=== PATIENT | female | born 1985 | race Caucasian/White ===

== ENCOUNTER 2025-01-24 14:03 | Outpatient (AMB) | payer BC, SELFPAY ==
--- NOTE | 2025-01-24 14:13 | MHC.PC.OV ---
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 Intake Note: new patient to [facility], patient also has a bump on her neck x 5days Sustainability Project Coordinator Required: No Allergies No Known Allergies Allergy (Verified 01/24/25 14:15) Tobacco use date assessed: 01/24/25 Dental Screening Dental Screen Date: 01/24/25 Did you have a dental visit in the last 12 months?: Yes Did you have a dental problem in the last 6 months where you did not have access to dental care?: No Was dental information given to patient?: Patient has dentist HPI HPI Comments History of Present Illness Details This is a 39-year-old female with a past medical history of lymphadenopathy, a thyroid nodule and depression with anxiety presenting to [facility]. She transferred from [place]. She scheduled the appointment because she is concerned about the nodule on her thyroid. She tells me that she was seeing General surgery, Dr. Navarro, due to prominent lymph nodes in her neck. She had ultrasounds and CT scan which were reassuring, and biopsy was not indicated. She had an ultrasound on 11/12/2024 which redemonstrated prominent level 2 nodes that appeared morphologically normal. She does not have pain associated with them. This ultrasound in October of 2024 also demonstrated a 1.7 x 1.4 x 1.3 cm mid gland left thyroid nodule, predominantly cystic, anechoic with layering isoechoic material, not tell her than wide, smooth margin, and possible peripheral rim calcifications, TI-RADS 3. Follow up ultrasound in 1, 3 in 5 years was recommended. She is concerned because she feels that it has enlarged during the past week, and sometimes when she swallows it feels uncomfortable on the left thyroid area or feels like something is stuck there. She is not having any difficulty actually swallowing or having to regurgitate food. No recent illness. Denies sore throat, fevers, chills. She is not having acid reflux. Patient says depression screening is positive because she has been so anxious about the thyroid nodule. She has a history of anxiety with depression, but she says this has not been problematic for her in recent times, and she is not under the care of a therapist or taking medication for it. She is prescribed Suboxone. Mammogram is up-to-date. She has bilateral breast implants. The mammogram did show on 10/17/2024 that she has heterogeneously dense breast tissue. Her mother had breast cancer. She has a gynecology visit scheduled 01/31/2024. Her last physical was in September of 2024. ROS: Constitutional: No unexplained weight loss, fever, chills, fatigue or night sweats. ENT: No hearing loss, sneezing, congestion, runny nose or sore throat. Respiratory: No shortness of breath, cough or sputum production. Cardiovascular: No chest pain Gastrointestinal: No anorexia, nausea, vomiting or diarrhea. No abdominal pain Neurologic: No headache, dizziness, syncope Skin: No rash Endocrine: No cold or heat intolerance. No polyuria or polydipsia. Physical exam: Constitutional: Alert, in no distress. Head: Normocephalic. Eyes: Pupils are equal, round and reactive to light. Extraocular muscles intact. Ear, Nose and Throat: Canals clear. TMs normal. Normal nasal mucosa. No nasal discharge. No oral lesions. Neck: Supple, Full range of motion. Bilateral prominent submandibular lymph nodes that are nontender to palpation.. The left thyroid lobe feels a little bigger than the right lobe, but I could not palpate a discrete mass. Respiratory: Clear to auscultation. Cardiovascular: S1 S2 regular. No murmurs. [facility] Medical History (Updated 01/24/25 @ 17:12 by MIKAEL Bills) Dense breast tissue Depression with anxiety Encounter for monitoring Suboxone maintenance therapy Dysphagia Thyroid nodule Surgical History (Updated 01/24/25 @ 17:09 by MIKAEL Bills) Hx of cosmetic surgery Family History (Updated 01/24/25 @ 14:23 by Edwina Peter) Father Substance abuse Mother Cancer Maternal Grandfather HTN (hypertension) Paternal Grandfather HTN (hypertension) Maternal Grandmother HTN (hypertension) Diabetes Paternal Grandmother Cardiovascular disease Social History (Updated 01/24/25 @ 14:20 by Edwina Peter) Household Members: Significant Other and Children Housing: House Are you a primary manager critical care to a significant other at home: Yes Do you presently have visiting nurse or other home services: No Alcohol intake: current Alcohol intake frequency: a few times a month Patient Tobacco Use Status: Never used Tobacco e-Cigarette/Vaping Use: Currently Using Second Hand Smoke Exposure: No service: No Current occupational status: employed 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 1. Little interest or pleasure in doing things: several days 2. Feeling down, depressed, or hopeless: several days 3. Trouble falling or staying asleep, or sleeping too much: not at all 4. Feeling tired or having little energy: more than half the days 5. Poor appetite or overeating: several days 6. Feeling bad about yourself - or that you are a failure or have let yourself or your family down: not at all 7. Trouble concentrating on things, such as reading the newspaper or watching television: not at all 8. Moving or speaking so slowly that other people could have noticed. Or the opposite - being so fidgety or restless that you have been moving around a lot more than usual: not at all 9. Thoughts that you would be better off or of hurting yourself in some way: not at all Total score: 5 [id number] - PHQ-9 Billing: Yes Source: Developed by Drs. Gigi Tompkins, Chinyere Fam, Rob Watson and colleagues, with an educational leanne from [employer]. Thrive Questionnaire Date Thrive assessed: 01/24/25 I am a: Patient What is your living situation today?: I have a steady place to live Within the past 12 months, did the food you bought not last and you didn't have the money to get more?: Never true Within the past 12 months, did you worry whether your food would run out before you got money to buy more?: Never true Do you have trouble paying for medicines?: No Do you have trouble getting transportation to medical appointments?: No Do you have trouble paying your heating and electricity bill?: No Do you have trouble taking care of your child, family member or friend?: No Do you have trouble with day-to-day activities such as bathing, preparing meals, shopping, managing finances, etc.?: No Are you currently unemployed and looking for a job?: No Are you interested in more education?: No Please select the resources that you would like help with: None Currently or been in a relationship where the following occur: No concerns reported THRIVE Score: 0 AUDIT C Alcohol Use Questionnaire (AUDIT-C) 1. How often do you have a drink containing alcohol?: Monthly or less 2. How many drinks containing alcohol do you have on a typical day when you are drinking?: 1 or 2 3. How often do you have six or more drinks on one occasion?: Never Total Score: 1 MARCUS-7 AMB Questionnaire MARCUS-7 Date MARCUS - 7 assessed: 01/24/25 Feeling nervous, anxious, or on edge: 1 = Several days Not being able to stop or control worryin = Several days Worrying too much about different things: 1 = Several days Trouble relaxin = Not at all Being so restless that it is hard to sit still: 0 = Not at all Becoming easily annoyed or irritable: 1 = Several days Feeling afraid as if something awful might happen: 0 = Not at all Total MARCUS-7 score (0-4 normal; 5-9 mild; 10-14 moderate; 15-21 severe): 4 Source: Developed by Drs. Gigi Tompknis, Chinyere Fam, Rob Watson and colleagues, with an educational leanne from [employer]. MARCUS-7 Assessment Billing MARCUS-7 Assessment Tool: MARCUS-7 Assessment 63883 Physical exam (Primary Care) Vital Signs: Last Vital Signs Temp 97.1 F 01/24/25 14:25 Pulse 68 01/24/25 14:25 Resp 12 01/24/25 14:25 BP 114/68 01/24/25 14:25 Pulse Ox 98 01/24/25 14:25 Oxygen Delivery Method Room Air 01/24/25 14:25 BMI result Body Mass Index 26.5 Tobacco/Smoking Status: Tobacco use Status Tobacco use date assessed 01/24/25 01/24/25 14:27 Patient Tobacco Use Status Never used Tobacco 01/24/25 14:27 e-Cigarette/Vaping Use Currently Using 01/24/25 14:27 PHQ-9: PHQ-9 Score PHQ-9: Total score 5 01/24/25 14:38 Thrive Assessment: Date of Thrive Assessment Date Thrive assessed 01/24/25 01/24/25 14:17 Currently or been in a relationship where the following occur: No concerns reported Coding Level of Care Code New Pt Level 4 (01376) Complex EM visit Add On G2211 Diagnoses Thyroid nodule E04.1 Dysphagia R13.10 Additional Codes MARCUS-7 Assessment Billing - MARCUS-7 Assessment Tool: MARCUS-7 Assessment 96458 ([id number]) PHQ-9 - 80930 - PHQ-9 Billing: Yes ([id number]) Assessment & Plan Assessment & Plan (1) Thyroid nodule: Code(s): E04.1 - Nontoxic single thyroid nodule Category: Medical (2) Dysphagia: Code(s): R13.10 - Dysphagia, unspecified Category: Medical (3) Thyroid nodule: Code(s): E04.1 - Nontoxic single thyroid nodule Category: Medical Plan Orders for thyroid ultrasound and x-ray of the soft tissue of the neck sent to [facility] per patient request. She is going to call them tomorrow to schedule them and message me the appointment date. Warning signs warranting ER evaluation reviewed. Check TSH, BNP and CBC. Reviewed with patient that 95% of thyroid nodules are benign. Referred to breast specialist for evaluation of dense breast tissue given family history. She will schedule her physical exam for 10/17/2025 in a follow up in a few weeks with me to discuss test results. Orders: Orders US thyroid Today E04.1 - Nontoxic single thyroid nodule, R13.10 - Dysphagia, unspecified XR soft tissue neck Today E04.1 - Nontoxic single thyroid nodule, R13.10 - Dysphagia, unspecified Complete Blood Count Auto Diff Today E04.1 - Nontoxic single thyroid nodule, R13.10 - Dysphagia, unspecified TSH reflex Free T4 Today E04.1 - Nontoxic single thyroid nodule, R13.10 - Dysphagia, unspecified Basic Metabolic Panel Today E04.1 - Nontoxic single thyroid nodule, R13.10 - Dysphagia, unspecified
[2025-01-24 14:25] VITALS: BP 114/68; PULSE 68; RESP 12; TEMP 36.2; O2SAT 98; BMI 26.5
--- OUTSIDE RECORDS SUMMARY | 2025-01-24 16:59 | XMS_ITS | Clinical Summary ---
Author Organization [facility] [address] [facility] lding Address [address] [place] [address] Phone Care Team Providers Care Plate Embosser Name Role Phone Kell Moulton MD Primary Care Provider [phone] Allergies No known active allergies Medications buprenorphine (SUBUTEX) [address] 12 mg under the tongue daily. 01/16/2021 Active polyethylene glycol (MIRALAX) 17 gram packet Take 17 g by mouth daily. Active 123/iron/folic/ omeg3s (ONE-A-DAY WOMEN'S 1 ORAL) Take by mouth. Active Lactobac no.41/Bifidobac t no.7 (PROBIOTIC-10 ORAL) Take by mouth. Active valACYclovir (VALTREX) 1 gram tablet 1 g. 10/15/2021 Active multivitamin (MULTI-DAY ORAL) Take 1 capsule by mouth. 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 (HSV) ant ibody 02/16/2022 Overview (08/24/2024): Both type 1 and 2, denies ever having a genital outbreak On valtrex at 36 wks Suboxone maintenance treatme nt complicating , antepartum 12/24/2021 Overview (08/24/2024): Currently on 12 mg [place]: Pediatrics consult 05/17 10am GET RID OF ANESTHESIA CONSULT Growth US Q 4 weeks Weekly testing at 32 weeks- getting BPPs Plan by pain management clinic in chart for pain at 36 weeks --Should be listed under the problem list where the patient goes and someone should contact at IP and on admission to [facility] for confirmation of dosing Q trimester urine drug screen Declined mantra services COVID-19 05/19/2020 Overview (08/24/2024): In 2019 Morphea 04/11/2019 Overview (08/24/2024): Back CTS (carpal tunnel syndrome) 05/27/2015 Left hand paresthesia 06/27/2014 Heavy menses 06/27/2014 Fatigue 06/27/2014 Depression 07/06/2012 Overview (08/24/2024): Hx of depression/anxiety as teenager. Anxiety 07/06/2012 Overview (08/24/2024): Hx of depression/anxiety as teenager. Immunizations Name Administration Dates Next Due DTaP (Infanrix) 6wks to less than 7yo ,12/27/1985,1984,1983,1984 Hep B, Unspecified 02/05/2000,07/31/1997 Hepatitis B (Sybldba-T-Trnog , Recombivax HB-Adult) 19yo and older 05/05/2016 Hepatitis B Pediatric (Enger ix B; Recombivax HB) to less than 20 yo 02/05/2000,07/31/1997 IPV Inactivated polio (Ipol) 6wks and older 08/27/1989,12/27/1985,1984,1983,1984 Influenza Quadravalent, MDCK , 0.5ml, with preservative (Flucelvax) 6mo and older 10/14/2017 Influenza Quadrivalent, 0.5m l, preservative free (Fluarix; FluLaval; Fluzone) ages 6mo and older (Afluria) 3yo and older 09/17/2022,08/13/2020 Influenza trivalent, 0.5mL, preservative free (Fluarix; FluLaval; Fluzone) ages 6mo and older (Afluria) 3 years and older 09/12/2015 Influenza trivalent, MDCK, 0 .5mL, preservative free (Flucelvax) 6mo and older 10/02/2024 Influenza trivalent, with preservative (Fluzone; Afluria) 6mo and older 09/18/2015,09/12/2015,09/11/2014,2012 MMR, measles mumps and rubel la Live (Priorix; M-M-R II) 12mo and older 07/31/1997,08/20/1985 MMRV, measles mumps rubella and varicella live (Proquad) 4yo to less than 7yo 07/31/1997,08/20/1985 Td Tetanus diptheria (Tdvax) 7yo and older 02/05/2000 Td, Unspecified 02/05/2000 Tdap Tetanus diptheria acell ular pertussis (Boostrix; Adacel) 7yo and older 05/11/2022,10/31/2012 Surgical History Surgery Date Site/Laterality Comments OTHER SURGICAL HISTORY 2002 PROCEDURE: IMPLANT BREAST SILICONE/EQ OTHER SURGICAL HISTORY 2003 PROCEDURE: MD NASAL/SINUS NDSC SURG W/BX POLYPC/DBRDMT SPX; COMMENT: rhinoplasty Medical History Medical History Date Comments History of opioid abuse ([facility]) 07/06/2012 DX:History of opioid abuse ([facility]); COMMENT: Currently in program; on Suboxone 16 daily Depression 07/06/2012 DX:Depression; C OMMENT: Hx of depression/anxiety as teenager. Anxiety 07/06/2012 DX:Anxiety; COMM ENT: Hx of depression/anxiety as teenager. Tobacco use 05/27/2015 DX:Tobacco use CTS (carpal tunnel syndrome) 05/27/2015 DX: CTS (carpal tunnel syndrome) HSV infection DX:HSV infection Morphea 04/11/2019 DX:Morphea; COMM ENT: Back Epigastric pain DX:Epigastric pa in Irritable bowel syndrome DX:Irri table bowel syndrome Family History Medical History Relation Name Comments Heart failure Father Hypertension Father Other cancer Maternal Grandfather liver Diabetes Maternal Grandmother Hypertension Maternal Grandmother Pancreatitis Maternal Grandmother Thyroid disease Maternal Grandmother Breast cancer Mother Adenoid cystic carcinoma BRCA negative, HTN Hypertension Mother Pancreatitis Mother Alzheimer's disease Paternal Grandfather CABG Paternal Grandmother Coronary artery disease Paternal Grandmother No Known Problems Sister No Known Problems Son 1 Peña No Known Problems Son 2 Joe No Known Problems Son 3 Javier Colon cancer Neg Hx Ovarian cancer Neg Hx Prostate cancer Neg Hx Uterine cancer Neg Hx Relation Name Status Comments Father Alive Maternal Grandfather lung ca ncer Maternal Grandmother Alive Mother Alive Paternal Grandfather Paternal Grandmother Alive Sister Alive Son 1 Peña Alive 2000 Son 2 Joe Alive 2012 Son 3 Javier Alive Social History Tobacco Use Types Packs/Day Years Used Date Smoking Tobacco: Former Cigarettes Smokeless Tobacco: Never Tobacco Cessation:Counseling Given: Not Answered Alcohol Use Standard Drinks/Week Comments No 0 (1 standard drink = 0.6 oz pur e alcohol) Housing Instability Answer Date Recorde d Are you worried that in the next 2 months you may not have stable housing? No 10/02/2024 Food Access & Nutrition Answer Date Rec orded Do you have access to a vari ety of food including fruits and vegetables? Yes 10/02/2024 Access to Healthcare Answer Date Record ed Within the last 3 months, ho w many times did you visit the emergency department for your medical care? 0 10/02/2024 Health Literacy Answer Date Recorded How often do you need to hav e someone help you when you read instructions, pamphlets, or other written material from your doctor or pharmacy? Never 10/02/2024 Caregiver: How often do you need to have someone help you when you read instructions, pamphlets, or other written material from your doctor or pharmacy? Not on file 10/02/2024 Financial Risk Answer Date Recorded How hard is it for you to pa y for the very basics like food, housing, medical care, and air conditioning / heating? Not very hard 10/02/2024 Transportation Answer Date Recorded Has the lack of transportati on kept you from meetings, work, or from getting things needed for daily living? No Has the lack of transportati on kept you from medical appointments or from getting medications? No 10/02/2024 Social Isolation Answer Date Recorded How often do you feel lonely or isolated from th ose around you? Never 10/02/2024 Food Risk Answer Date Recorded Within the past 12 months we worried whether our food would run out before we got money to buy more. Never true 10/02/2024 Within the past 12 months th e food we bought just didn't last and we didn't have money to get more. Never true 10/02/2024 Dependent Care Answer Date Recorded Do you need help finding or paying for care for your loved ones. For example, childcare teacher or elderly care for an older adult? No 10/02/2024 Education Answer Date Recorded Do you think completing more education or training, like finishing a GED, going to college, or learning a trade, would be helpful for you? No 10/02/2024 Employment and Income Answer Date Recor ded During the last four weeks, have you been actively looking for work? No 10/02/2024 Living Situation Answer Date Recorded What is your living situation? 1 12/02/2023 Comments No Sex and Gender Information Value Date Recorded Sex Assigned at Not on file Legal Sex Female 10:21 PM EST Gender Identity Not on file Sexual Orientation Not on file Obstetrics History Para Term AB IAB SAB Ectopic Multiple Livin g Live Births 3 3 3 3 Date Outcome GA Total Labor Labor/2nd/3rd Weight Sex Type Anes PTL Luz A1 A5 Name Clin Term Term Term Last Filed Vital Signs Vital Sign Reading Time Taken Comments Blood Pressure 108/62 10/02/2024 8:59 AM EST Pulse 62 10/02/2024 8:59 AM EST Temperature 35.8 ??C (96.4 ??F) 10/02/2024 8:59 AM ES T Respiratory Rate - - Oxygen Saturation - - Inhaled Oxygen Concentration - - Weight 76.7 kg (169 lb) 10/02/2024 8:59 AM EST Height 170.2 cm (5' 7 ) 10/02/2024 8:59 AM EST Body Mass Index 26.47 10/02/2024 8:59 AM EST Plan of Treatment Upcoming Encounters Date Type Department Care Team (Late st Contact Info) Description 01/30/2025 11:15 AM EST Office Visit Obstetrics and Gynecology [address] [phone] Katy Willis, [facility] [address] [facility] [place] [address] Health Maintenance Due Date Last Done Comments COVID-19 Vaccine ( season) 2024 09/17/2022, 08/03/2021, 07/06/2021 Cervical Cancer Screening: HPV 01/01/2025 01/01/2020 Depression Screening 10/02/2025 10/02/2024 Social Influencers of Health Screening 10/02/2025 10/02/2024 Breast Cancer Screening 10/16/2026 10/16/2024 Cholesterol Screening (Lipid Panel) 10/05/2029 10/05/2024, 05/03/2023 DTaP,Tdap,and Td Vaccines (10 - Td or Tdap) 05/11/2032 05/11/2022, 10/31/2012, 02/05/2000, Additional history exists IPV Vaccines Completed 08/27/1989, 11/30, 1984, Additional history exists MMR Vaccines Completed 07/31/1997, 01/1997, 08/20/1985, Additional history exists Varicella Vaccines Completed 07/31/1997, 08/20/1985 Hepatitis B Vaccines Completed 05/05/2016, 02/05/2000, 02/05/2000, Additional history exists HIV Screening Completed 12/24/2021 Hepatitis C Screening Completed 12/24/2021 Influenza Vaccine Completed 10/02/2024, , 08/13/2020, Additional history exists HIB Vaccines Aged Out No longer eligi ble based on patient's age to complete this topic HPV Vaccines Aged Out No longer eligi ble based on patient's age to complete this topic Hepatitis A Vaccines Aged Out No long er eligible based on patient's age to complete this topic Meningococcal ACWY Vaccine Aged Out N o longer eligible based on patient's age to complete this topic Meningococcal B Vacine Aged Out No lo nger eligible based on patient's age to complete this topic Pneumococcal Vaccine: Pediatrics (0 to 5 Years) and At-Risk Patients (6 to 64 Years) Aged Out No longer eligible based on patient's age to complete this topic RSV Immunization Patients Under 20 months Aged Out No longer eligible based on patient's age to complete this topic Procedures Procedure Name Priority Date/Time Associated Diagnosis Comments MG MAMMO DIGITAL SCREENING W GUNNAR BILAT Routine 10/16/2024 3:15 PM EST Screening mammogram for breast cancer LIPID PANEL WITH REFLEX TO DIRECT LDL Routine 10/05/2024 11:55 AM EST Screening, lipid HM HEPATITIS C SCREENING Routine 12/24/2021 HM HIV SCREENING Routine 12/24/2021 HM HPV Routine 01/01/2020 from Last 3 Months or Most Recently Relevant to Health Maintenance Results * MG Mammo Digital Screening w Gunnar bilat (10/16/2024 3:15 PM EST) Anatomical Region Laterality Modality Breast Bilateral Mammography 10/17/2024 11:4 2 AM EST Impressions 10/17/2024 11:47 AM EST No mammographic evidence of malignancy. BREAST DENSITY: C - The breasts are heterogeneously dense which may obscure small masses. BI-RADS CATEGORY: 1 - NEGATIVE RECOMMENDATION: Screening bilateral mammogram is recommended in 1 year. MAMMO LOCATION: [facility], [address] [place] [address], [phone], . -------- FINAL REPORT -------- Dictated By: Reina San Dictated Date: 10/17/2024 11:42 ET Assigned Physician: Reina San Reviewed and Electronically Signed By: Reina San Signed Date: 10/17/2024 11:47 ET Workstation ID: [id number] Transcribed By: Self Edit Transcribed Date: 10/17/2024 11:42 ET Narrative 10/17/2024 11:47 AM EST EXAM: Screening Mammogram CLINICAL: 39 years old, Female, routine annual exam. COMPARISON: This is a baseline exam. TECHNIQUE: Bilateral MLO and CC views were obtained digitally with 3-D mammogram (digital breast tomosynthesis). Computer-aided detection was utilized in evaluation of this exam (CAD). ??Implant and implant displaced views performed. FINDINGS: No suspicious mass, architectural distortion, or suspicious calcifications. Visualized implants appear intact. Procedure Note Reina San MD - 10/17/2024 EXAM: Screening Mammogram CLINICAL: 39 years old, Female, routine annual exam. COMPARISON: This is a baseline exam. TECHNIQUE: Bilateral MLO and CC views were obtained digitally with 3-Dmammogram (digital breast tomosynthesis). Computer-aided detection wasutilized in evaluation of this exam (CAD). Implant and implant displacedviews performed. FINDINGS: No suspicious mass, architectural distortion, or suspiciouscalcifications. Visualized implants appear intact. IMPRESSION: No mammographic evidence of malignancy. BREAST DENSITY: C - The breasts are heterogeneously dense which mayobscure small masses. BI-RADS CATEGORY: 1 - NEGATIVE RECOMMENDATION: Screening bilateral mammogram is recommended in 1 year. MAMMO LOCATION: [facility], [address] [place] [address], [phone], . -------- FINAL REPORT -------- Dictated By: Reina San Dictated Date: 10/17/2024 11:42 ET Assigned Physician: Reina San Reviewed and Electronically Signed By: Reina San Signed Date: 10/17/2024 11:47 ET Workstation ID: [id number] Transcribed By: Self Edit Transcribed Date: 10/17/2024 11:42 ET Ab [facility] BI PROCEDURES Final Result * Lipid panel with reflex to direct LDL (10/05/2024 11:55 AM EST) Cholesterol 131 0 - 200 mg/dL LAB CHEMISTRY METHOD 10/05/2024 3:26 PM EST [facility] Triglycerides 115 0 - 150 mg/dL LAB CHEMISTRY METHOD 10/05/2024 3:26 PM EST [facility] HDL 51 >=40 mg/dL LAB CHEMISTRY METHOD 10/05/2024 3:26 PM EST [facility] LDL Calculated 57 0 - 100 mg/dL LAB CHEMISTRY METHOD 10/05/2024 3:26 PM EST [facility] VLDL Cholesterol John 23 mg/dL LAB CHEMISTRY METHOD 10/05/2024 3:26 PM EST [facility] Non HDL Chol. (LDL+VLDL) 80 <145 mg/dL LAB CHEMISTRY METHOD 10/05/2024 3:26 PM EST [facility] Chol/HDL Ratio 2.6 0.0 - 4.4 LAB CHEMISTRY METHOD 10/05/2024 3:26 PM EST [facility] Blood Venous blood specimen / Unknown Venipuncture / Unknown 10/05/2024 11:55 AM EST 10/05/2024 11:55 AM EST Ab [facility] LAB BLOOD ORDERABLES Final Res ult [facility] [address] [place] [address], * HIV Screening (12/24/2021) Pathologist [facility] HIV Screening Abstracted [facility] Provider HEALTH MAINTENANCE Final Result * Hepatitis C Screening (12/24/2021) Pathologist [facility] Hepatitis C Screening Abstracted Historical Provider HEALTH MAINTENANCE Final Result * Cervical Cancer Screening: HPV (01/01/2020) Pathologist [facility] Cervical Cancer Screening: HPV Abstracted Historical Provider HEALTH MAINTENANCE Final Result from Last 3 Months or Most Recently Relevant to Health [place] [id number] [facility] Care Teams Plate Embosser Relationship Specialty Start Date End Date Kell Moulton MD [address] [place] [address] PCP - General 01/18/23
== END 2025-01-24 14:57 | disposition home or self-care (01) ==
PROVIDERS: PCP Physician Assistant Medical; Visit Provider Physician Assistant Medical
DX: E04.1 Nontoxic single thyroid nodule (principal); R13.10 Dysphagia, unspecified

== ENCOUNTER → 2025-01-24 14:03 | Outpatient (BNVA) | payer BC, SELFPAY | PROVIDERS: PCP Physician Assistant Medical; Visit Provider Physician Assistant Medical | DX: E04.1 Nontoxic single thyroid nodule (principal); R13.10 Dysphagia, unspecified | CPT/HCPCS: 96127 ==

== ENCOUNTER 2025-01-24 15:06 | Outpatient (REF) | payer BC, SELFPAY ==
[2025-01-24 18:08] LABS: MANUAL DIFF FLAG NO
--- OUTSIDE RECORDS SUMMARY | 2025-01-24 18:25 | XMS_ITS | Clinical Summary ---
Author Organization [facility] [address] [facility] lding Address [address] [place] [address] Phone Care Team Providers Care Light Fixture Servicer Name Role Phone Kell Moulton MD Primary Care Provider [phone] Allergies No known active allergies Medications buprenorphine [...] contact at IP and on admission to [facility] for confirmation of dosing Q trimester urine [...] ,12/27/1985,1984,1983,1984 Hep B, Unspecified 02/05/2000,07/31/1997 Hepatitis B (Sarlhho-R-Kbfob , Recombivax HB-Adult) 19yo and older 05/05/2016 [...] BREAST SILICONE/EQ OTHER SURGICAL HISTORY 2003 PROCEDURE: [place] NASAL/SINUS NDSC SURG W/BX POLYPC/DBRDMT SPX; COMMENT: rhinoplasty Medical History Medical History Date Comments History of opioid abuse ([facility]) 07/06/2012 DX:History of opioid abuse ([facility]); COMMENT: Currently in program; on Suboxone 16 [...] care for your loved ones. For example, child and family services worker or elderly care for an older adult? [...] AM EST Office Visit Obstetrics and Gynecology [address] [phone] Katy Willis, [facility] [address] [facility] [place] [address] Health Maintenance Due Date Last Done Comments [...] is recommended in 1 year. MAMMO LOCATION: [facility], [address] [place] [address], [phone], . -------- FINAL REPORT -------- Dictated By: Reina San Dictated Date: 10/17/2024 11:42 ET Assigned Physician: Reina San Reviewed and Electronically Signed By: Reina San Signed Date: 10/17/2024 11:47 ET Workstation ID: [id number] Transcribed By: Self Edit Transcribed Date: 10/17/2024 [...] is recommended in 1 year. MAMMO LOCATION: [facility], [address] [place] [address], [phone], . -------- FINAL REPORT -------- Dictated By: Reina San Dictated Date: 10/17/2024 11:42 ET Assigned Physician: Reina San Reviewed and Electronically Signed By: Reina San Signed Date: 10/17/2024 11:47 ET Workstation ID: [id number] Transcribed By: Self Edit Transcribed Date: 10/17/2024 11:42 ET Ab [facility] BI PROCEDURES Final Result * Lipid panel with reflex to direct LDL (10/05/2024 11:55 AM EST) Cholesterol 131 0 - 200 mg/dL LAB CHEMISTRY METHOD 10/05/2024 3:26 PM EST [facility] Triglycerides 115 0 - 150 mg/dL LAB CHEMISTRY METHOD 10/05/2024 3:26 PM EST [facility] HDL 51 >=40 mg/dL LAB CHEMISTRY METHOD 10/05/2024 3:26 PM EST [facility] LDL Calculated 57 0 - 100 mg/dL LAB CHEMISTRY METHOD 10/05/2024 3:26 PM EST [facility] VLDL Cholesterol John 23 mg/dL LAB CHEMISTRY METHOD 10/05/2024 3:26 PM EST [facility] Non HDL Chol. (LDL+VLDL) 80 <145 mg/dL LAB CHEMISTRY METHOD 10/05/2024 3:26 PM EST [facility] Chol/HDL Ratio 2.6 0.0 - 4.4 LAB CHEMISTRY METHOD 10/05/2024 3:26 PM EST [facility] Blood Venous blood specimen / Unknown Venipuncture / Unknown 10/05/2024 11:55 AM EST 10/05/2024 11:55 AM EST Ab [facility] LAB BLOOD ORDERABLES Final Res ult [facility] [address] [place] [address], * HIV Screening (12/24/2021) Pathologist [facility] HIV Screening Abstracted [facility] Provider HEALTH MAINTENANCE Final Result * Hepatitis C Screening (12/24/2021) Pathologist [facility] Hepatitis C Screening Abstracted Historical Provider HEALTH MAINTENANCE Final Result * Cervical Cancer Screening: HPV (01/01/2020) Pathologist [facility] Cervical Cancer Screening: HPV Abstracted Historical Provider HEALTH MAINTENANCE Final Result from Last 3 Months or Most Recently Relevant to Health [place] [phone] [facility] Care Teams Light Fixture Servicer Relationship Specialty Start Date End Date Kell Moulton MD [address] [place] [address] PCP - General 01/18/23
[2025-01-24 18:32] LABS: Basophils Percent Auto 0.6 % (0-2); Eosinophils Absolute Auto 0.1 X10*3/uL (0.0-0.4); Eosinophils Percent Auto 2.1 % (0-4); Hematocrit 35.1 % (37.0-47.0); Hemoglobin 11.9 g/dl (12.0-16.0); Imm Gran Abs Auto 0.02 X10*3/uL (0.00-0.03); Imm Gran Pct Auto 0.3 % (0.0-0.4); Lymphocytes Absolute Auto 1.7 X10*3/uL (1.2-4.9); Lymphocytes Percent Auto 27.2 % (20-40); Mean Corpuscular HGB Conc 33.9 g/dl (31.0-35.0); Mean Corpuscular Volume 88.4 fL (80.0-98.0); Monocytes Absolute Auto 0.7 X10*3/uL (0.1-1.2); Monocytes Percent Auto 10.6 % (2-11); Neutrophils Absolute Auto 3.7 x10*3/uL (2.0-8.3); Neutrophils Percent Auto 59.2 % (45-73); Platelet Count 190 X10*3/uL (160-400); Red Blood Count 3.97 X10*6/uL (4.20-5.50); White Blood Count 6.3 X10*3/uL (4.8-10.8)
[2025-01-24 18:53] LABS: Anion Gap 10 (12-20); Blood Urea Nitrogen 12 mg/dL (9-16); Calcium 9.2 mg/dL (8.4-10.2); Carbon Dioxide 26 mmol/L (22-29); Chloride 110 mmol/L (96-108); Estimated Glomerular Filt Rate > 60; Glucose Random 118 mg/dL (60-115); Potassium 4.2 mmol/L (3.3-5.1); Sodium 142 mmol/L (135-145)
[2025-01-24 19:00] LABS: TSH reflex Free T4 0.46 uIU/mL (0.32-4.0)
== END 2025-01-24 15:07 | disposition home or self-care (01) ==
LOC: HO.WFDLDS 15:06
PROVIDERS: Visit Provider Physician Assistant Medical
DX: R13.10 Dysphagia, unspecified (principal); E04.1 Nontoxic single thyroid nodule
CPT/HCPCS: 36415; 80048; 84443; 85025

== ENCOUNTER 2025-02-14 13:39 | Outpatient (AMB) | payer BC, SELFPAY ==
--- NOTE | 2025-02-14 13:37 | MHC.PC.OV ---
Intake Visit Reasons: telehealth review results Intake Note: patient here for telehealth follow up for med review Doll Repairer Required: No Is last menstrual period known: Yes Last menstrual period: 12/25/24 Post menopausal: No Patient : No Allergies No Known Allergies Allergy (Verified 02/14/25 13:37) Tobacco use date assessed: 02/14/25 Dental Screening Dental Screen Date: 01/24/25 Did you have a dental visit in the last 12 months?: Yes Did you have a dental problem in the last 6 months where you did not have access to dental care?: No Was dental information given to patient?: Patient has dentist HPI HPI Comments History of Present Illness Details This is a 39-year-old female with a past medical history of lymphadenopathy, a thyroid nodule and depression with anxiety presenting for follow up. When she saw me for an initial visit she was concerned about her thyroid nodule. She reported seeing General surgery, Dr. Navarro, due to prominent lymph nodes in her neck. She had ultrasounds and CT scan which were reassuring, and biopsy was not indicated. She had an ultrasound on 11/12/2024 which redemonstrated prominent level 2 nodes that appeared morphologically normal. She does not have pain associated with them. This ultrasound in October of 2024 also demonstrated a 1.7 x 1.4 x 1.3 cm mid gland left thyroid nodule, predominantly cystic, anechoic with layering isoechoic material, not tell her than wide, smooth margin, and possible peripheral rim calcifications, TI-RADS 3. Follow up ultrasound in 1, 3 in 5 years was recommended. When she saw me she reported a week of discomfort and feeling like the thyroid nodule was larger. She said it felt uncomfortable to swallow. This has since resolved, and she feels like the size of the nodule reduced. Patient says she has been very anxious about it. She had the thyroid ultrasound repeated on 01/31/25 which showed the thyroid nodule measured 1.8 x 1.3 x 1.3 cm, TI-RADS 3. They described it as stable appearing. I had also ordered a soft tissue x-ray of the neck, but when she went to have it done they said they did not have the order. I faxed this again today to [facility], and she will return there to have it done. Her TSH is normal. She has a history of anxiety with depression. She is prescribed Suboxone. She previously reported anxiety and depression were not bothering her, and she does not feel depressed, but she has been a lot more anxious lately. Patient reports she saw her production technician for her annual visit on 01/31/2024. She says her Pap was normal. She reports that she did have an HSV outbreak, and it was treated with valacyclovir. It resolved. She is going to return for blood work to recheck her CBC and check iron and B12 because she was mildly anemic. Her last physical was in September of 2024. ROS: Constitutional: No unexplained weight loss, fever, chills, fatigue or night sweats. Hematologic/Lymphatics: No bleeding or bruising. Endocrine: No cold or heat intolerance. No polyuria or polydipsia. Psychiatric: see HPI. No SI/HI. PFSH Medical History (Updated 02/14/25 @ 14:12 by MIKAEL Bills) Anxiety HSV infection Screening for cardiovascular condition Mild anemia Dense breast tissue Depression with anxiety Encounter for monitoring Suboxone maintenance therapy Dysphagia Thyroid nodule Surgical History (Updated 01/24/25 @ 17:09 by MIKAEL Bills) Hx of cosmetic surgery Family History (Updated 01/24/25 @ 14:23 by Edwina Peter MA) Father Substance abuse Mother Cancer Maternal Grandfather HTN (hypertension) Paternal Grandfather HTN (hypertension) Maternal Grandmother HTN (hypertension) Diabetes Paternal Grandmother Cardiovascular disease Social History (Updated 01/24/25 @ 14:20 by Edwina Peter MA) Household Members: Significant Other and Children Both parents involved: No Caregiver staying overnight: No Housing: House Are you a primary resident care coordinator to a significant other at home: Yes Do you presently have visiting nurse or other home services: No 75 years or older and lives alone: No Alcohol intake: current Alcohol intake frequency: a few times a month Patient Tobacco Use Status: Never used Tobacco e-Cigarette/Vaping Use: Currently Using Second Hand Smoke Exposure: No Patient : No service: No Current occupational status: employed 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 Gigi Tompkins, Chinyere Fam, Rob Watson and colleagues, with an educational leanne from [employer]. Physical exam (Primary Care) Tobacco/Smoking Status: Tobacco use Status Tobacco use date assessed 02/14/25 02/14/25 13:39 Patient Tobacco Use Status Never used Tobacco 02/14/25 13:39 e-Cigarette/Vaping Use Currently Using 02/14/25 13:39 Thrive Assessment: Date of Thrive Assessment Date Thrive assessed 01/24/25 02/14/25 13:39 Telehealth Telehealth Telehealth Platform: Telephone Location of provider rendering services: practice address Location of patient: address on file Patient Identification confirmed using: Name, : Yes Telehealth method: voice only Patient verbally consented to treatment: Yes Patient verbally consented to billing insurance company: Yes Patient informed of any privacy concerns related to visit: Yes Minutes spent on Phone/Video with Pt.: 13 Coding Level of Care Code Tele Est Pt Level 4 (99672) Complex EM visit Add On G2211 Diagnoses Mild anemia D64.9 Anxiety F41.9 Thyroid nodule E04.1 Assessment & Plan Assessment & Plan (1) Mild anemia: Code(s): D64.9 - Anemia, unspecified Category: Medical Plan: Increase iron rich foods. She is going to return for labs to check B12, iron and CBC. (2) Anxiety: Code(s): F41.9 - Anxiety disorder, unspecified Category: Medical Plan: Patient is wondering if this could be related to the thyroid, but advised her that TSH is normal though on the low end of normal. Patient says she is going to monitor symptoms and meet with endocrinology. If anxiety is persisting then she will follow up to discuss further management with me. (3) Thyroid nodule: Code(s): E04.1 - Nontoxic single thyroid nodule Category: Medical Plan: Reviewed ultrasound with the patient. TSH normal. She would like to see endocrinology to review the ultrasound. Referral placed. Orders: Orders Lipid Panel Today E78.5 - Hyperlipidemia, unspecified, Z13.6 - Encounter for screening for cardiovascular disorders Referrals Endocrinology Referral E04.1 - Nontoxic single thyroid nodule
== END 2025-02-14 14:15 | disposition home or self-care (01) ==
LOC: HO.HMCFM 13:39
PROVIDERS: PCP Physician Assistant Medical; Visit Provider Physician Assistant Medical
DX: D64.9 Anemia, unspecified (principal); F41.9 Anxiety disorder, unspecified; E04.1 Nontoxic single thyroid nodule

== ENCOUNTER → 2025-02-14 13:39 | Outpatient (BNVA) | payer BC, SELFPAY | PROVIDERS: PCP Physician Assistant Medical; Visit Provider Physician Assistant Medical ==

== ENCOUNTER 2025-03-19 09:37 | Outpatient (REF) | payer BC, SELFPAY ==
--- OUTSIDE RECORDS SUMMARY | 2025-03-19 10:38 | XMS_ITS | Encounter Summary ---
Author Organization [facility] Address [address] [place] [address] Care Team Providers Care Filter Tender Jelly Name Role Phone Hoda Guzmán MD Primary Care Provider Kell Sy MD Primary Care Provider Un available Encounter Details Date Type Department Care Team Description 01/11/2022 Orders Only Ultrasound - [address] [address] [facility] [address] [place] [address] Multigravida in first trimester (Primary Dx) Social History Tobacco Use Types Packs/Day Years Used Date Smoking Tobacco: Former Cigarettes 0.5 Vapor Smokeless Tobacco: Never Alcohol Use Standard Drinks/Week Comments No 0 (1 standard drink = 0.6 oz pur e alcohol) occ Alcohol Habits Answer Date Recorded How often do you have a drink containing alcohol ? Never 02/03/2021 How many drinks containing a lcohol do you have on a typical day when you are drinking? Not asked How often do you have six or more drinks on one occasion? Not asked Physical Activity Answer Date Recorded On average, how many days pe r week do you engage in moderate to strenuous exercise (like walking fast, running, jogging, dancing, swimming, biking, or other activities that cause a light or heavy sweat)? 0 days 02/03/2021 On average, how many minutes do you engage in exercise at this level? 0 min 02/03/2021 Stress Answer Date Recorded Do you feel stress - tense, restless, nervous, or anxious, or unable to sleep at night because your mind is troubled all the time - these days? Not at all 02/03/2021 Intimate Partner Violence Answer Date R ecorded Within the last year, have y ou been afraid of your partner or ex-partner? No 02/03/2021 Within the last year, have y ou been humiliated or emotionally abused in other ways by your partner or ex-partner? No Within the last year, have y ou been kicked, hit, slapped, or otherwise physically hurt by your partner or ex-partner? No 02/03/2021 Within the last year, have y ou been raped or forced to have any kind of sexual activity by your partner or ex-partner? No 02/03/2021 Sex Assigned at Date Recorded Not on file Job Start Date Occupation Industry Not on file Not on file Not on file COVID-19 Exposure Response Date Recorded In the last month, have you been in contact with someone who was confirmed or suspected to have Coronavirus / COVID-19? No / Unsure 01/11/2022 10:58 AM EST documented as of this encounter Plan of Treatment Not on file documented as of this encounter Results * [facility] (01/11/2022 11:26 AM EST) [facility] SEE SEPARATE REPORT 01/11/2022 11:28 AM EST [facility] Comment: Specimen sent to Reference Lab. ??See report sent under separate cover 01/11/2022 11:2 6 AM EST 01/11/2022 11:27 AM EST Narrative [facility] - 01/11/2022 11:28 AM EST Release to patient->Immediate Lucho Mendoza CNM LAB [facility] documented in this encounter Visit Diagnoses Diagnosis Multigravida in first trimester- Primary Multigravida in first trimester documented in this encounter Care Teams Filter Tender Jelly Relationship Specialty Start Date End Date Hoda Guzmán MD PCP - General Internal Medicine 06/19/12 01/17/23 Kell Moulton MD PCP - General Internal Medicine 01/18/23 documented as of this encounter
--- OUTSIDE RECORDS SUMMARY | 2025-03-19 10:38 | XMS_ITS | Encounter Summary ---
Author Organization [facility] Address [address] [place] [address] Care Team Providers Care Pleating Machine Operator Name Role Phone Hoda Guzmán MD Primary Care Provider Kell Sy MD Primary Care Provider Un available Encounter Details Date Type Department Care Team Description 07/08/2022 Pt. Non Urgent Medic al Question OBGYN - [place] [address] [place] [address] Mayte Julien, DO Social History Tobacco Use Types Packs/Day Years [...] Exposure Response Date Recorded In the last 10 days, have yo u been in contact with someone who was confirmed or suspected to have Coronavirus/COVID-19? No / Unsure 07/08/2022 9:32 AM EDT documented as of this encounter Plan of Treatment Not on file documented as of this encounter Visit Diagnoses Not on filedocumented in this encounter Care Teams Pleating Machine Operator Relationship Specialty Start Date End Date Hoda Guzmán MD PCP - General Internal Medicine 06/19/12 01/17/23 Kell Moulton MD PCP - General Internal Medicine 01/18/23 documented as of this encounter
--- OUTSIDE RECORDS SUMMARY | 2025-03-19 10:38 | XMS_ITS | Clinical Summary ---
Author Organization [facility] [address] [facility] Address [address] [place] [address] Phone Care Team Providers Care Rehab Therapy Manager Name Role Phone Kell Moulton MD Primary Care Provider [phone] Allergies No known active allergies Medications polyethylene glycol (MIRALAX) 17 gram packet Take 17 g by mouth daily. Active Lactobac no.41/Bifidobac t no.7 (PROBIOTIC-10 ORAL) Take by mouth. Active multivitamin (MULTI-DAY ORAL) Take 1 capsule [...] genital outbreak On valtrex at 36 wks COVID-19 05/19/2020 Overview (08/24/2024): In 2019 Morphea 04/11/2019 Overview (08/24/2024): Back CTS (carpal tunnel syndrome) 05/27/2015 Left hand paresthesia 06/27/2014 Heavy menses 06/27/2014 Fatigue 06/27/2014 Depression 07/06/2012 Overview (08/24/2024): Hx of depression/anxiety as teenager. Anxiety 07/06/2012 Overview (08/24/2024): Hx of depression/anxiety as teenager. Resolved Problems Problem Noted Date Diagnosed Date Resolved Date Suboxone maintenance treatme nt complicating , antepartum ([facility] V24, [facility] V28) 12/24/2021 01/30/2025 Overview (08/24/2024): Currently on 12 mg [place]: Pediatrics consult 05/17 10am GET RID OF ANESTHESIA CONSULT Growth US Q 4 weeks Weekly testing at 32 weeks- getting BPPs Plan by pain management clinic in chart for pain at 36 weeks --Should be listed under the problem list where the patient goes and someone should contact at IP and on admission to [facility] for confirmation of dosing Q trimester urine drug screen Declined mantra services Encounters Date Type Department Care Team Description 01/30/2025 11:15 AM EST Office Visit Obstetrics and Gynecology - [address] [address] Katy Willis, KERRY Women's annual routine gynecological examination (Primary Dx) from Last 3 Months Immunizations Name Administration Dates Next Due DTaP (Infanrix) 6wks to less than 7yo ,12/27/1985,1984,1983,1984 Hep B, Unspecified 02/05/2000,07/31/1997 Hepatitis B (Znvfbxp-V-Lmrpx , Recombivax HB-Adult) 19yo and older 05/05/2016 [...] BREAST SILICONE/EQ OTHER SURGICAL HISTORY 2003 PROCEDURE: OR NASAL/SINUS NDSC SURG W/BX POLYPC/DBRDMT SPX; COMMENT: rhinoplasty Medical History Medical History Date Comments History of opioid abuse ([facility] V24, [facility] V28) 07/06/2012 DX:History of opioid abuse ( [facility]); COMMENT: Currently in program; on Suboxone [...] Son 3 Javier Colon cancer Neg Hx Kidney cancer Neg Hx Ovarian cancer Neg Hx Pancreatic cancer Neg Hx Prostate cancer Neg Hx [...] care for your loved ones. For example, children's librarian or elderly care for an older adult? [...] SAB Ectopic Multiple Livin g Live Births 8 3 3 5 3 3 Date Outcome GA Total Labor Labor/2nd/3rd Weight Sex Type Anes PTL Luz A1 A5 Name Clin 2000 Term 37w 0d 3260 g (115 oz) M Vag-S pont Livin g Delivery Location:[facility] 2001 AB 2003 AB Comments:d&c 2004 AB 4w0 d 2008 AB 0 AB 2011 Term 40w 0d 3580 g (126.3 oz) M Vag-S pont Epidur al Livin g 9 9 Joe Aburto Delivery Location:[facility] 2021 Term 37w 5d M Vag-S pont Epidur al Livin g Javier schneider, CNM Comments:induced for s uspected ICP Last Filed Vital Signs Vital Sign Reading Time Taken Comments Blood Pressure 103/63 01/30/2025 11:26 AM EST Pulse 66 01/30/2025 11:26 AM EST Temperature 35.8 ??C (96.4 ??F) 10/02/2024 8:59 AM ES T Respiratory Rate 14 01/30/2025 11:26 AM EST Oxygen Saturation - - Inhaled Oxygen Concentration - - Weight 76.3 kg (168 lb 3.2 oz) 01/30/2025 11:26 AM EST Height 158 cm (5' 2.21 ) 01/30/2025 11:26 AM EST Body Mass Index 30.56 01/30/2025 11:26 AM EST Plan of Treatment Health Maintenance Due Date Last Done Comments COVID-19 Vaccine ( season) 2024 09/17/2022, 08/03/2021, 07/06/2021 Depression Screening 10/02/2025 10/02/2024 Social Influencers of Health Screening 10/02/2025 10/02/2024 Breast Cancer Screening 10/16/2026 10/16/2024 Cholesterol Screening (Lipid Panel) 10/05/2029 10/05/2024, 05/03/2023 Cervical Cancer Screening: HPV 01/30/2030 01/30/2025, 01/01/2020 DTaP,Tdap,and Td Vaccines (10 - Td or [...] age to complete this topic Meningococcal B Vaccine Aged Out No l onger eligible based on patient's age to complete this topic Pneumococcal Vaccine: Pediatrics (0 to 5 Years) and At-Risk Patients (6 to 64 Years) Aged Out No longer eligible based on patient's age to complete this topic RSV Immunization Patients Under 20 months Aged Out No longer eligible based on patient's age to complete this topic Procedures Procedure Name Priority Date/Time Associated Diagnosis Comments PAP SMEAR Routine 01/30/2025 11:42 AM EST Women's annual routine gynecological examination HPV WITH REFLEX GENOTYPE Routine 01/30/2025 11:42 AM EST Women's annual routine gynecological examination MG MAMMO DIGITAL SCREENING W GUNNAR BILAT Routine 10/16/2024 3:15 PM EST Screening mammogram for breast cancer LIPID PANEL WITH REFLEX TO DIRECT LDL Routine 10/05/2024 11:55 AM EST Screening, lipid HEPATITIS C SCREENING Routine 12/24/2021 HIV SCREENING Routine 12/24/2021 from Last 3 Months or Most Recently Relevant to Health Maintenance Results * HPV with reflex genotype (01/30/2025 11:42 AM EST) HPV Negative Negative LAB MICROBIOLOGY METHOD 01/31/2025 3:40 PM EST [facility] Brushing/Spatula Cervix uteri structure / Unknown 01/30/2025 11:42 AM EST 01/31/2025 6:10 AM EST us Katy Willis CNM LAB MOLECULAR DIAGNOSTICS O RDERABLES Final Result [facility] [address] [place] [address], [place] [phone] * Pap smear (01/30/2025 11:42 AM EST) Interpretation Negative for intraepithelial lesion or malignancy 02/04/2025 8:47 AM [facility] General Categorization Negative 02/04/2025 8:47 AM EDT [facility] LMP 01/25/2025 [facility] Additional Information Abundant blood noted. 02/04/2025 8:47 AM [facility] Specimen Adequacy Satisfactory for evaluation, endocervical/penaloza sformation zone component present 02/04/2025 8:47 AM [facility] Pap Methodology Liquid Based Pap Test [facility]20[facility] Disclaimer The Pap test is a screening test which carries an inherent false negative rate. These test results should be correlated with the patient's clinical findings and history. This Pap test was processed using an automated screening system. Technical cytopathology services provided by [facility], at [address] [place] [address] (CLIA # [id number]/Emmanuel Hodge MD, Transportation Driver.) 02/04/2025 8:47 AM [facility] Console Pap Interpretation Reported 02/04/2025 8:47 AM [facility] Brushing/Spatula Cervix uteri structure / Unknown 01/30/2025 11:42 AM EST 01/30/2025 11:43 AM EST Katy Willis [facility] CYTOLOGY ORDERABLES Fin al Result [facility] [address] [place] [address], * MG Mammo Digital Screening w Gunnar [...] is recommended in 1 year. MAMMO LOCATION: [facility], [address] [place] [address], [address], . -------- FINAL REPORT -------- Dictated By: Reina San Dictated Date: 10/17/2024 11:42 ET Assigned Physician: Reina San Reviewed and Electronically Signed By: Reina San Signed Date: 10/17/2024 11:47 ET Workstation ID: [id number] Transcribed By: Self Edit Transcribed Date: 10/17/2024 [...] is recommended in 1 year. MAMMO LOCATION: [facility], [address] [place] [address], [address], . -------- FINAL REPORT -------- Dictated By: Reina San Dictated Date: 10/17/2024 11:42 ET Assigned Physician: Reina San Reviewed and Electronically Signed By: Reina San Signed Date: 10/17/2024 11:47 ET Workstation ID: [id number] Transcribed By: Self Edit Transcribed Date: 10/17/2024 11:42 ET Ab [facility] IMG BI PROCEDURES Final Result * Lipid panel with reflex to direct LDL (10/05/2024 11:55 AM EST) Cholesterol 131 0 - 200 mg/dL LAB CHEMISTRY METHOD 10/05/2024 3:26 PM [facility] Triglycerides 115 0 - 150 mg/dL LAB CHEMISTRY METHOD 10/05/2024 3:26 PM [facility] HDL 51 >=40 mg/dL LAB CHEMISTRY METHOD 10/05/2024 3:26 PM [facility] LDL Calculated 57 0 - 100 mg/dL LAB CHEMISTRY METHOD 10/05/2024 3:26 PM [facility] VLDL Cholesterol John 23 mg/dL LAB CHEMISTRY METHOD 10/05/2024 3:26 PM [facility] Non HDL Chol. (LDL+VLDL) 80 <145 mg/dL LAB CHEMISTRY METHOD 10/05/2024 3:26 PM [facility] Chol/HDL Ratio 2.6 0.0 - 4.4 LAB CHEMISTRY METHOD 10/05/2024 3:26 PM [facility] Blood Venous blood specimen / Unknown Venipuncture / Unknown 10/05/2024 11:55 AM EST 10/05/2024 11:55 AM EST Ab [facility] LAB BLOOD ORDERABLES Final Res ult KEYANA CAPONE TRACY ([facility]) [facility] [address] [place] [address], [place] [phone] * HIV Screening (12/24/2021) HIV Screening Abstracted Historical Provider HEALTH MAINTENANCE Final Result * Hepatitis C Screening (12/24/2021) Hepatitis C Screening Abstracted Historical Provider HEALTH MAINTENANCE Final Result from Last 3 Months or Most Recently Relevant to Health Maintenance Insurance [facility], [place] [id number] [facility] Care Teams Rehab Therapy Manager Relationship Specialty Start Date End Date Kell Moulton MD PCP - General 01/18/23
--- OUTSIDE RECORDS SUMMARY | 2025-03-19 10:38 | XMS_ITS | Encounter Summary ---
Author Organization [facility] Address [address] [place] [address] Care Team Providers Care Repairer Veneer Sheet Name Role Phone Hoda Guzmán MD Primary Care Provider Kell Sy MD Primary Care Provider Un available Encounter Details Date Type Department Care Team Description 08/29/2022 Pt. Non Urgent Medic al Question OBGYN - [place] [address] [place] [address] Arnold Huerta [facility] [address] [place] [address] Social History Tobacco Use Types Packs/Day Years [...] suspected to have Coronavirus/COVID-19? No / Unsure 08/16/2022 1:04 PM EDT documented as of this encounter Miscellaneous Notes * Telephone Encounter - Perla Gregory R.N. - 08/30/2022 8:36 AM EDTFrom: Katherin Lau To: ARNOLD HUERTA CNM Sent: 08/29/2022 8:49 PM EDT Subject: Wound culture tx I completed my 10 day antibiotic. Just wondering what now? How do I know it???s gone? I didn???t have symptoms in first place, just curious because I don???t see another obgyn appt for 6 months. Thank you. documented in this encounter Plan of Treatment Not on file documented as of this encounter Visit Diagnoses Not on filedocumented in this encounter Care Teams Repairer Veneer Sheet Relationship Specialty Start Date End Date Hoda Guzmán MD PCP - General Internal Medicine 06/19/12 01/17/23 Kell Moulton MD PCP - General Internal Medicine 01/18/23 documented as of this encounter
--- OUTSIDE RECORDS SUMMARY | 2025-03-19 10:38 | XMS_ITS | Encounter Summary ---
Author Organization [facility] Address [address] [place] [address] Care Team Providers Care Ditch Cleaner Name Role Phone Hoda Guzmán MD Primary Care Provider Kell Sy MD Primary Care Provider Un available Reason for Visit * Reason Onset Date Comments APPOINTMENT 06/30/2018 Encounter Details Date Type Department Care Team Description 06/30/2018 Telephone Physiatry - [place] [address] [place] [address] Howard Steel PA-C APPOINTMENT Social History Tobacco Use Types Packs/Day Years Used Date Smoking Tobacco: Every Day Cigarettes 0.5 Smokeless Tobacco: Never Comments:5 cigs daily, tryin g to quit- updated 07/07/2016 [place] Alcohol Use Standard Drinks/Week Comments Yes 0 (1 standard drink = 0.6 oz [...] file Not on file Not on file documented as of this encounter Miscellaneous Notes * Telephone Encounter - Bryanna Gomez - 06/30/2018 11:21 AM EDT Patient is referred to: physiatry. Reason for referral: joint pain shoulder left FYI Patient no showed her appointment with Howard Steel 06/30/18. I spoke with the patient and she statesshe did not need this appointment in physiatry. She states she does not have pain in her shoulder. documented in this encounter Plan of Treatment Not on file documented as of this encounter Visit Diagnoses Not on filedocumented in this encounter Care Teams Ditch Cleaner Relationship Specialty Start Date End Date Hoda Guzmán MD PCP - General Internal Medicine 06/19/12 01/17/23 Kell Moulton MD PCP - General Internal Medicine 01/18/23 documented as of this encounter
--- OUTSIDE RECORDS SUMMARY | 2025-03-19 10:38 | XMS_ITS | Encounter Summary ---
Author Organization [facility] Address [address] [place] [address] Care Team Providers Care Gas Regulator Repairer Name Role Phone Hoda Guzmán MD Primary Care Provider Kell Sy MD Primary Care Provider Un available Encounter Details Date Type Department Care Team Description 11/25/2012 [facility] Medical Records [address] [place] [address] [facility] Social History Tobacco Use Types Packs/Day Years Used Date Smoking Tobacco: Former Cigarettes 0.5 Vapor Smokeless Tobacco: Never Comments:Currently vapes Alcohol Use Standard Drinks/Week Comments No 0 [...] on file documented as of this encounter Plan of Treatment Not on file documented as of this encounter Visit Diagnoses Not on filedocumented in this encounter Care Teams Gas Regulator Repairer Relationship Specialty Start Date End Date Hoda Guzmán MD PCP - General Internal Medicine 06/19/12 01/17/23 Kell Moulton MD PCP - General Internal Medicine 01/18/23 documented as of this encounter
--- OUTSIDE RECORDS SUMMARY | 2025-03-19 10:38 | XMS_ITS | Encounter Summary ---
Author Organization [facility] Address [address] [place] [address] Care Team Providers Care Professor Criminal Justice Name Role Phone Hoda Guzmán MD Primary Care Provider Kell Sy MD Primary Care Provider Un available Encounter Details Date Type Department Care Team Description 05/11/2022 Pt. Non Urgent Medic al Question OBGYN - [place] [address] [place] [address] Arnold Huerta [facility] [address] [place] [address] Social History Tobacco Use Types Packs/Day Years [...] suspected to have Coronavirus/COVID-19? No / Unsure 05/11/2022 1:55 PM EDT documented as of this encounter Miscellaneous Notes * Telephone Encounter - Perla Gregory R.N. - 05/12/2022 9:57 AM EDTFrom: Katherin Lau To: ARNOLD HUERTA CNM Sent: 05/11/2022 11:33 PM EDT Subject: Question regarding PLATELET COUNT Very concerned about my red blood cell count and H&H. Can you call me documented in this encounter Plan of Treatment Not on file documented as of this encounter Visit Diagnoses Not on filedocumented in this encounter Care Teams Professor Criminal Justice Relationship Specialty Start Date End Date Hoda Guzmán MD PCP - General Internal Medicine 06/19/12 01/17/23 Kell Moulton MD PCP - General Internal Medicine 01/18/23 documented as of this encounter
--- OUTSIDE RECORDS SUMMARY | 2025-03-19 10:38 | XMS_ITS | Encounter Summary ---
Author Organization [facility] Address [address] [place] [address] Care Team Providers Care Photographic Supervisor Name Role Phone Hoda Guzmán MD Primary Care Provider Kell Sy MD Primary Care Provider Un available Encounter Details Date Type Department Care Team Description 10/09/2015 [facility] Medical Records [address] [place] [address] Abstract, Provider Social History Tobacco Use Types Packs/Day Years Used Date Smoking Tobacco: Some Days Cigarettes 0.5 Smokeless Tobacco: Never Alcohol Use Standard Drinks/Week Comments No 0 (1 standard drink = 0.6 oz pur e alcohol) Alcohol Habits Answer Date Recorded How often [...] on filedocumented in this encounter Care Teams Photographic Supervisor Relationship Specialty Start Date End Date Hoda Guzmán MD PCP - General Internal Medicine 06/19/12 01/17/23 Kell Moulton MD PCP - General Internal Medicine 01/18/23 documented as of this encounter
--- OUTSIDE RECORDS SUMMARY | 2025-03-19 10:38 | XMS_ITS | Encounter Summary ---
Author Organization [facility] Address [address] [place] [address] Care Team Providers Care Traffic Agent Name Role Phone Hoda Guzmán MD Primary Care Provider Kell Sy MD Primary Care Provider Un available Encounter Details Date Type Department Care Team Description 04/13/2022 Refill Medicine/Pediatrics - [address] [address] Hoda Guzmán MD Social History Tobacco Use Types Packs/Day Years [...] suspected to have Coronavirus/COVID-19? No / Unsure 04/13/2022 1:51 PM EDT documented as of this encounter Miscellaneous Notes * Telephone Encounter - Perla Gregory R.N. - 04/14/2022 12:15 PM EDT Rx sent * Telephone Encounter - Margarita Baugh M.A. - 04/14/2022 8:52 AM EDT Forwarding to [employer] for consideration * Telephone Encounter - Margarita Baugh M.A. - 04/14/2022 8:50 AM EDTFrom: Katherin Lau To: Office of Mehrdad Guzmán Sent: 04/13/2022 9:42 PM EDT Subject: Medication Renewal Request Refills have been requested for the following medications: Other - Stool softners Preferred pharmacy: [facility] [address] [place] [address] documented in this encounter Plan of Treatment Not on file documented as of this encounter Visit Diagnoses Not on filedocumented in this encounter Care Teams Traffic Agent Relationship Specialty Start Date End Date Hoda Gumzán MD PCP - General Internal Medicine 06/19/12 01/17/23 Kell Moulton MD PCP - General Internal Medicine 01/18/23 documented as of this encounter
[2025-03-19 11:27] LABS: MANUAL DIFF FLAG NO
[2025-03-19 11:33] LABS: Basophils Absolute Auto 0.1 X10*3/uL (0.0-0.2); Basophils Percent Auto 0.8 % (0-2); Eosinophils Absolute Auto 0.1 X10*3/uL (0.0-0.4); Eosinophils Percent Auto 1.3 % (0-4); Hematocrit 38.1 % (37.0-47.0); Imm Gran Abs Auto 0.01 X10*3/uL (0.00-0.03); Imm Gran Pct Auto 0.2 % (0.0-0.4); Lymphocytes Absolute Auto 2.4 X10*3/uL (1.2-4.9); Lymphocytes Percent Auto 38.5 % (20-40); Mean Corpuscular HGB Conc 34.1 g/dl (31.0-35.0); Mean Corpuscular Hemoglobin 30.2 pg (27.0-33.0); Mean Corpuscular Volume 88.6 fL (80.0-98.0); Mean Platelet Volume 10.9 fL (9.4-12.3); Monocytes Absolute Auto 0.6 X10*3/uL (0.1-1.2); Monocytes Percent Auto 9.2 % (2-11); Neutrophils Absolute Auto 3.1 x10*3/uL (2.0-8.3); Platelet Count 158 X10*3/uL (160-400); Red Cell Distribution Width 12.5 % (11.0-16.0); White Blood Count 6.2 X10*3/uL (4.8-10.8)
[2025-03-19 11:50] LABS: Cholesterol 151 mg/dL (<200); HDL Cholesterol 47 mg/dL (>40); Iron 117 mcg/dL (30-160); LDL Cholesterol Calculated 86 mg/dL (<100); Percent Iron Saturation 47 % (15-50); Total Iron Binding Capacity 251 mcg/dL (228-428); Triglycerides 94 mg/dL (<150); Unsaturated Iron Binding 134 ug/dL
[2025-03-19 12:20] LABS: Vitamin B12 628 pg/mL (200-900)
== END 2025-03-19 09:38 | disposition home or self-care (01) ==
LOC: HO.WFDLDS 09:37
PROVIDERS: Visit Provider Physician Assistant Medical
DX: D64.9 Anemia, unspecified (principal); Z91.89 Other specified personal risk factors, not elsewhere classified; Z13.6 Encounter for screening for cardiovascular disorders; E78.5 Hyperlipidemia, unspecified
CPT/HCPCS: 36415; 80061; 82607; 83540; 85025

== ENCOUNTER 2025-03-28 13:23 | Outpatient (AMB) | payer BC, SELFPAY ==
[2025-03-28 13:26] VITALS: BP 102/64; BMI 26.8
--- NOTE | 2025-03-28 13:26 | A.OFFVIS_ITS ---
Vital Signs 3 03/28/25 13:26 Height 5 ft 7 in Weight 171 lb 4.787 oz BMI 26.8 BP 102/64 Blood Pressure Location Lt brachial Position Sitting Intake Visit Reasons: Nontoxic single thyroid nodule Intake Note: New patient present today Nontoxic single thyroid nodule. Vegetable Vendor Required: No Accompanied by: Self / Same As Patient Allergies No Known Allergies Allergy (Verified 03/28/25 13:29) Medication List - Last Reconciled 03/28/25 by Cadence Lindsey MD buprenorphine HCl 8 mg sublingual DAILY HPI Comments Details: 39-year-old female coming in today for initial evaluation of solitary left-sided thyroid nodule. She palpated a lump in her neck in 2022, and was evaluated by a surgeon, who did a soft tissue CT which showed right and left level 2 neck lymph nodes which were normal in appearance. They still apparently referred her to Radiology for a biopsy of the lymph node however the lymph node appeared to close to the blood vessels and did not appear concerning so no biopsy was done. Later in 2023 she had swelling on the left side of her neck, and underwent thyroid ultrasound which patient showed me the report on her phone: Us 11/20:1.7x1.4x1.3, cystic, anechoic, with layering isochoic , smooth, some peripheral rim calci, subcentimeter nodules on the right. ultrasound done in January 2025 at [facility], the images are not available but per the report patient has a left-sided 1.8 cm TR 3 category nodule the left inferior pole which appears stable in size compared to October 2024. Also had an ultrasound soft tissue neck which did at not identify any lymphadenopathy. Patient currently denies heat or cold intolerance, hair loss, , anxiety, weight changes, mood changes, low energy, changes in appearance of eyes or vision changes, tremors, increased diaphoresis or dry skin. ? HAs some constipation requiring laxatives. Does have palpitations Patient denies any difficulty swallowing, pain on swallowing or voice changes or difficulty breathing. Patient denies any history of childhood neck radiation. Denies having ever used lithium, amiodarone or biotin supplements. Patient denies any family history of thyroid cancer . maternal hypothyroidism: hypothyroidism Physical exam General: sitting comfortably in no acute distress HEENT: normocephalic/atraumatic, moist oral mucosa Neck: supple, palpable right neck level 20.5 cm lymph node, palpable 1 cm left- sided thyroid nodule Cardiac: normal heart sounds Pulm: normal breath sounds B/L, no added breath sounds Abd: not distended, no tenderness Extremities: no edema, no signs of myxedema Neuro: AAO x3, Speech: normal, no facial droop, moving all 4 extremities Laboratory Tests 01/24/25 15:08 TSH 0.46 PFSH Medical History (Updated 03/22/25 @ 13:02 by MIKAEL Bills) Decreased platelet count Heart palpitations Anxiety HSV infection Screening for cardiovascular condition Mild anemia Dense breast tissue Depression with anxiety Encounter for monitoring Suboxone maintenance therapy Dysphagia Thyroid nodule Surgical History (Updated 01/24/25 @ 17:09 by MIKAEL Bills) Hx of cosmetic surgery Family History (Updated 01/24/25 @ 14:23 by Edwina Peter MA) Father Substance abuse Mother Cancer Maternal Grandfather HTN (hypertension) Paternal Grandfather HTN (hypertension) Maternal Grandmother HTN (hypertension) Diabetes Paternal Grandmother Cardiovascular disease Social History (Updated 01/24/25 @ 14:20 by Edwina Peter MA) Household Members: Significant Other and Children Both parents involved: No Caregiver staying overnight: No Housing: House Are you a primary patient care associate to a significant other at home: Yes Do you presently have visiting nurse or other home services: No 75 years or older and lives alone: No Alcohol intake: current Alcohol intake frequency: a few times a month Patient Tobacco Use Status: Never used Tobacco e-Cigarette/Vaping Use: Currently Using Second Hand Smoke Exposure: No service: No Current occupational status: employed 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 ultrasound done in January 2025 at [facility], the images are not available but per the report patient has a left-sided 1.8 cm TR 3 category nodule the left inferior pole which appears stable in size compared to October 2024. Also had an ultrasound soft tissue neck which did at not identify any lymphadenopathy. At this point given features reported in the size of the nodule, we will plan to repeat an ultrasound in 1 year in January 2026. She does not have any compressive symptoms currently. Normal TSH from January 2025. Plan: -ordered thyroid ultrasound for January 2026 and follow up in February 2026 to discuss results -do TSH and free T4 in January 2026 Plan I spent 45 minutes in reviewing the record, seeing the patient and documenting in the medical record. Orders: Orders 2 Free T4 (Free Thyroxine) 02/03/26 E04.1 - Nontoxic single thyroid nodule Thyroid Stimulating Hormone 02/03/26 E04.1 - Nontoxic single thyroid nodule US thyroid 02/03/26 E04.1 - Nontoxic single thyroid nodule Patient Instructions: Do blood work in January 2026 Do ultrasound thyroid in January 2026, someone will call you to schedule this Follow up in February 2026 to discuss results Coding Level of Care Code New Pt Level 4 (36704) Diagnoses Thyroid nodule E04.1 Time Spent (min) 45
--- OUTSIDE RECORDS SUMMARY | 2025-03-28 15:46 | XMS_ITS | Encounter Summary ---
Author Organization [facility] Address [address] [place] [address] Care Team Providers Care Plug Making Operator Name Role Phone Hoda Guzmán MD Primary Care Provider Kell Sy MD Primary Care Provider Un available Encounter Details Date Type Department Care Team Description 07/08/2022 Pt. Non Urgent Medic al Question OBGYN - [place] [address] [place] [address] Mayte Julien, DO Social History Tobacco Use [...] on filedocumented in this encounter Care Teams Plug Making Operator Relationship Specialty Start Date End Date Hoda Guzmán MD PCP - General Internal Medicine 06/19/12 01/17/23 Kell Moulton MD PCP - General Internal Medicine 01/18/23 documented as of this encounter
--- OUTSIDE RECORDS SUMMARY | 2025-03-28 15:46 | XMS_ITS | Encounter Summary ---
Author Organization [facility] Address [address] [place] [address] Care Team Providers Care Machine Tool Builder Name Role Phone Hoda Guzmán MD Primary Care Provider Kell Sy MD Primary Care Provider Un available Encounter Details Date Type Department Care Team Description 07/05/2012 Release of Information Medical Records [address] [place] [address] Abstract, Provider Social History Tobacco Use Types Packs/Day Years Used Date Smoking Tobacco: Every Day Cigarettes 0.5 Smokeless Tobacco: Never Alcohol Use [...] on filedocumented in this encounter Care Teams Machine Tool Builder Relationship Specialty Start Date End Date Hoda Guzmán MD PCP - General Internal Medicine 06/19/12 01/17/23 Kell Moulton MD PCP - General Internal Medicine 01/18/23 documented as of this encounter
--- OUTSIDE RECORDS SUMMARY | 2025-03-28 15:46 | XMS_ITS | Clinical Summary ---
Author Organization [facility] [address] [facility] Address [address] [place] [address] Phone Care Team Providers Care Core Drilling Supervisor Name Role Phone Kell Moulton MD Primary Care Provider [phone] Allergies No known active allergies Medications polyethylene [...] Suboxone maintenance treatme nt complicating , antepartum ([facility] V24, [facility] V28) 12/24/2021 01/30/2025 Overview (08/24/2024): Currently on [...] contact at IP and on admission to [facility] for confirmation of dosing Q trimester urine drug screen Declined mantra services Encounters Date Type Department Care Team Description 01/30/2025 11:15 AM EST Office Visit Obstetrics and Gynecology - [address] [address] Katy Willis, KERRY Women's annual routine gynecological examination (Primary Dx) from Last 3 Months Immunizations Name Administration Dates Next Due DTaP (Infanrix) 6wks to less than 7yo ,12/27/1985,1984,1983,1984 Hep B, Unspecified 02/05/2000,07/31/1997 Hepatitis B (Hvygyca-W-Nibdi , Recombivax HB-Adult) 19yo and older 05/05/2016 [...] BREAST SILICONE/EQ OTHER SURGICAL HISTORY 2003 PROCEDURE: ND NASAL/SINUS NDSC SURG W/BX POLYPC/DBRDMT SPX; COMMENT: rhinoplasty Medical History Medical History Date Comments History of opioid abuse ([facility] V24, [facility] V28) 07/06/2012 DX:History of opioid abuse ( [facility]); COMMENT: Currently in program; on Suboxone 16 [...] for your loved ones. For example, child care group leader or elderly care for an older adult? [...] oz) M Vag-S pont Livin g Delivery Location:[facility] 2001 AB 2003 AB Comments:d&c 2004 AB 4w0 d 2008 AB 0 AB 2011 Term 40w 0d 3580 g (126.3 oz) M Vag-S pont Epidur al Livin g 9 9 Joe Aburto Delivery Location:[facility] 2021 Term 37w 5d M Vag-S pont [...] LAB MICROBIOLOGY METHOD 01/31/2025 3:40 PM EST [facility] Brushing/Spatula Cervix uteri structure / Unknown 01/30/2025 11:42 AM EST 01/31/2025 6:10 AM EST us Katy Willis CNM LAB MOLECULAR DIAGNOSTICS O RDERABLES Final Result [facility] [address] [place] [address], [place] [phone] * Pap smear (01/30/2025 11:42 AM EST) Interpretation Negative for intraepithelial lesion or malignancy 02/04/2025 8:47 AM [facility] General Categorization Negative 02/04/2025 8:47 AM EDT [facility] LMP 01/25/2025 [facility] Additional Information Abundant blood noted. 02/04/2025 8:47 AM [facility] Specimen Adequacy Satisfactory for evaluation, endocervical/penaloza sformation zone component present 02/04/2025 8:47 AM [facility] Pap Methodology Liquid Based Pap Test 02/04/2025 8:47 [facility] Disclaimer The Pap test is a screening test which carries an inherent false negative rate. These test results should be correlated with the patient's clinical findings and history. This Pap test was processed using an automated screening system. Technical cytopathology services provided by [facility], at [address] [place] [address] (CLIA # [id number]/Emmanuel Hodge MD, Carpenter Mate.) 02/04/2025 8:47 AM [facility] Console Pap Interpretation Reported 02/04/2025 8:47 AM [facility] Brushing/Spatula Cervix uteri structure / Unknown 01/30/2025 11:42 AM EST 01/30/2025 11:43 AM EST Katy Willis [facility] CYTOLOGY ORDERABLES Fin al Result [facility] [address] [place] [address], * MG Mammo Digital Screening w Gunnar [...] is recommended in 1 year. MAMMO LOCATION: [facility], [address] [place] [address], [address], . -------- FINAL REPORT -------- Dictated By: Reina San Dictated Date: 10/17/2024 11:42 ET Assigned Physician: Reina San Reviewed and Electronically Signed By: Reina San Signed Date: 10/17/2024 11:47 ET Workstation ID: [id number] Transcribed By: Self Edit Transcribed Date: 10/17/2024 [...] is recommended in 1 year. MAMMO LOCATION: [facility], [address] [place] [address], [address], . -------- FINAL REPORT -------- Dictated By: Reina San Dictated Date: 10/17/2024 11:42 ET Assigned Physician: Reina San Reviewed and Electronically Signed By: Reina San Signed Date: 10/17/2024 11:47 ET Workstation ID: [id number] Transcribed By: Self Edit Transcribed Date: 10/17/2024 11:42 ET Ab YOUSSEF IMG BI PROCEDURES Final Result * Lipid panel with reflex to direct LDL (10/05/2024 11:55 AM EST) Cholesterol 131 0 - 200 mg/dL LAB CHEMISTRY METHOD 10/05/2024 3:26 PM [facility] Triglycerides 115 0 - 150 mg/dL LAB CHEMISTRY METHOD 10/05/2024 3:26 PM [facility] HDL 51 >=40 mg/dL LAB CHEMISTRY METHOD 10/05/2024 3:26 PM [facility] LDL Calculated 57 0 - 100 mg/dL LAB CHEMISTRY METHOD 10/05/2024 3:26 PM [facility] VLDL Cholesterol John 23 mg/dL LAB CHEMISTRY METHOD 10/05/2024 3:26 PM [facility] Non HDL Chol. (LDL+VLDL) 80 <145 mg/dL LAB CHEMISTRY METHOD 10/05/2024 3:26 PM [facility] Chol/HDL Ratio 2.6 0.0 - 4.4 LAB CHEMISTRY METHOD 10/05/2024 3:26 PM [facility] Blood Venous blood specimen / Unknown Venipuncture / Unknown 10/05/2024 11:55 AM EST 10/05/2024 11:55 AM EST Ab OYUSSEF LAB BLOOD ORDERABLES Final Res ult KEAYNA CAPONE TRACY ([facility]) [facility] [address] [place] [address], [place] [phone] * HIV Screening (12/24/2021) HIV Screening Abstracted Historical Provider HEALTH MAINTENANCE Final Result * Hepatitis C Screening (12/24/2021) Hepatitis C Screening Abstracted Historical Provider HEALTH MAINTENANCE Final Result from Last 3 Months or Most Recently Relevant to Health Maintenance [facility] [place] [place] [id number] [facility] Care Teams Core Drilling Supervisor Relationship Specialty Start Date End Date Kell Moulton MD PCP - General 01/18/23
--- OUTSIDE RECORDS SUMMARY | 2025-03-28 15:46 | XMS_ITS | Encounter Summary ---
Author Organization [facility] Address [address] [place] [address] Care Team Providers Care Urgent Care Physician Assistant Name Role Phone Hoda Guzmán MD Primary Care Provider Kell Sy MD Primary Care Provider Un available Encounter Details Date Type Department Care Team Description 07/20/2022 Telephone [place] [address] [place] [address] Sánchez Graham, [facility] [address] [place] [address] Social History Tobacco Use Types Packs/Day Years [...] on filedocumented in this encounter Care Teams Urgent Care Physician Assistant Relationship Specialty Start Date End Date Hoda Guzmán MD PCP - General Internal Medicine 06/19/12 01/17/23 Kell Moulton MD PCP - General Internal Medicine 01/18/23 documented as of this encounter
--- OUTSIDE RECORDS SUMMARY | 2025-03-28 15:46 | XMS_ITS | Encounter Summary ---
Author Organization [facility] Address [address] [place] [address] Care Team Providers Care Operations Chief Name Role Phone Hoda Guzmán MD Primary Care Provider Kell Sy MD Primary Care Provider Un available Reason for Visit * Reason Onset Date Comments APPOINTMENT 06/30/2018 Encounter Details Date Type Department Care Team Description 06/30/2018 Telephone Physiatry - [place] [address] [place] [address] Howard Steel PA-C APPOINTMENT Social History Tobacco [...] on filedocumented in this encounter Care Teams Operations Chief Relationship Specialty Start Date End Date Hoda Guzmán MD PCP - General Internal Medicine 06/19/12 01/17/23 Kell Moulton MD PCP - General Internal Medicine 01/18/23 documented as of this encounter
--- OUTSIDE RECORDS SUMMARY | 2025-03-28 15:46 | XMS_ITS | Encounter Summary ---
Author Organization [facility] Address [address] [place] [address] Care Team Providers Care Receptionist Doctor'S Office Name Role Phone Hoda Guzmán MD Primary Care Provider Kell Sy MD Primary Care Provider Un available Encounter Details Date Type Department Care Team Description 08/04/2013 Release of Information Medical Records [address] [place] [id number] Abstract, Provider Social History Tobacco Use Types [...] on filedocumented in this encounter Care Teams Receptionist Doctor'S Office Relationship Specialty Start Date End Date Hoda Guzmán MD PCP - General Internal Medicine 06/19/12 01/17/23 Kell Moulton MD PCP - General Internal Medicine 01/18/23 documented as of this encounter
--- OUTSIDE RECORDS SUMMARY | 2025-03-28 15:46 | XMS_ITS | Encounter Summary ---
Author Organization [facility] Address [address] [place] [address] Care Team Providers Care Turbine Room Attendant Name Role Phone Hoda Guzmán MD Primary Care Provider Kell Sy MD Primary Care Provider Un available Encounter Details Date Type Department Care Team Description 04/13/2022 Orders Only OBGYN - [place] [address] [place] [address] Lucho Mendoza, CN [address] [place] [address] Social History Tobacco Use Types Packs/Day Years [...] PM EDT documented as of this encounter Plan of Treatment Not on file documented as of this encounter Visit Diagnoses Not on filedocumented in this encounter Care Teams Turbine Room Attendant Relationship Specialty Start Date End Date Hoda Guzmán MD PCP - General Internal Medicine 06/19/12 01/17/23 Kell Moulton MD PCP - General Internal Medicine 01/18/23 documented as of this encounter
--- OUTSIDE RECORDS SUMMARY | 2025-03-28 15:46 | XMS_ITS | Encounter Summary ---
Author Organization [facility] Address [address] [place] [address] Care Team Providers Care Wood Chopper Name Role Phone Hoda Guzmán MD Primary Care Provider Kell Sy MD Primary Care Provider Un available Encounter Details Date Type Department Care Team Description 10/09/2015 Transfer Records Medical Records [address] [place] [address] Abstract, Provider Social History Tobacco Use Types [...] on filedocumented in this encounter Care Teams Wood Chopper Relationship Specialty Start Date End Date Hoda Guzmán MD PCP - General Internal Medicine 06/19/12 01/17/23 Kell Moulton MD PCP - General Internal Medicine 01/18/23 documented as of this encounter
--- OUTSIDE RECORDS SUMMARY | 2025-03-28 15:46 | XMS_ITS | Encounter Summary ---
Author Organization [facility] Address [address] [place] [address] Care Team Providers Care Heel Painter Name Role Phone Hoda Guzmán MD Primary Care Provider Kell Sy MD Primary Care Provider Un available Encounter Details Date Type Department Care Team Description 04/13/2022 Refill Medicine/Pediatrics - [address] [address] Hoda Guzmán MD Social History Tobacco Use [...] - 04/14/2022 8:52 AM EDT Forwarding to [employer] for consideration * Telephone Encounter - Margarita Baugh M.A. - 04/14/2022 8:50 AM EDTFrom: Katherin Lau To: Office of Mehrdad Guzmán Sent: 04/13/2022 9:42 PM EDT Subject: Medication Renewal Request Refills have been requested for the following medications: Other - Stool softners Preferred pharmacy: [facility] [address] [place] [address] documented in this encounter Plan of Treatment Not on file documented as of this encounter Visit Diagnoses Not on filedocumented in this encounter Care Teams Heel Painter Relationship Specialty Start Date End Date Hoda Guzmán MD PCP - General Internal Medicine 06/19/12 01/17/23 Kell Moulton MD PCP - General Internal Medicine 01/18/23 documented as of this encounter
--- OUTSIDE RECORDS SUMMARY | 2025-03-28 15:46 | XMS_ITS | Encounter Summary ---
Author Organization [facility] Address [address] [place] [address] Care Team Providers Care Nuclear Operator Name Role Phone Hoda Guzmán MD Primary Care Provider Kell Sy MD Primary Care Provider Un available Encounter Details Date Type Department Care Team Description 05/17/2022 [facility] Medical Records [address] [place] [address] Jovita Malhotra Social History Tobacco Use Types Packs/Day Years [...] suspected to have Coronavirus/COVID-19? No / Unsure 05/18/2022 11:02 AM EDT documented as of this encounter Plan of Treatment Not on file documented as of this encounter Visit Diagnoses Not on filedocumented in this encounter Care Teams Nuclear Operator Relationship Specialty Start Date End Date Hoda Guzmán MD PCP - General Internal Medicine 06/19/12 01/17/23 Kell Moulton MD PCP - General Internal Medicine 01/18/23 documented as of this encounter
--- OUTSIDE RECORDS SUMMARY | 2025-03-28 15:46 | XMS_ITS | Encounter Summary ---
Author Organization [facility] Address [address] [place] [address] Care Team Providers Care Adding Machine Servicer Name Role Phone Hoda Guzmán MD Primary Care Provider Kell Sy MD Primary Care Provider Un available Encounter Details Date Type Department Care Team Description 11/25/2012 [facility] Medical Records [address] [place] [address] [facility] Social History Tobacco Use Types Packs/Day [...] on filedocumented in this encounter Care Teams Adding Machine Servicer Relationship Specialty Start Date End Date Hoda Guzmán MD PCP - General Internal Medicine 06/19/12 01/17/23 Kell Moulton MD PCP - General Internal Medicine 01/18/23 documented as of this encounter
== END 2025-03-28 14:02 | disposition home or self-care (01) ==
LOC: HO.ENCR 13:24
PROVIDERS: PCP Physician Assistant Medical; Visit Provider Student in an Organized Health Care Education/Training Program
DX: E04.1 Nontoxic single thyroid nodule (principal)
CPT/HCPCS: 99204

== ENCOUNTER → 2025-03-28 13:23 | Outpatient (BNVA) | payer BC, SELFPAY | PROVIDERS: PCP Physician Assistant Medical; Visit Provider Student in an Organized Health Care Education/Training Program ==

== ENCOUNTER → 2025-04-04 14:59 | Outpatient (BNV) | payer BC, SELFPAY | PROVIDERS: PCP Physician Assistant Medical; Visit Provider Internal Medicine Cardiovascular Disease | DX: R00.2 Palpitations (principal) | CPT/HCPCS: 93244 ==

== ENCOUNTER → 2025-04-04 15:06 | Outpatient (REF) | payer BC, SELFPAY ==
--- OUTSIDE RECORDS SUMMARY | 2025-04-04 15:41 | XMS_ITS | Clinical Summary ---
Author Organization [facility] [address] [facility] l[address] Address [address] [place] [address] Phone Care Team Providers Care Mold Changer Name Role Phone Kell Moulton MD Primary Care Provider [phone] Allergies No known active allergies Medications polyethylene [...] Suboxone maintenance treatme nt complicating , antepartum ([facility] V24, [facility] V28) 12/24/2021 01/30/2025 Overview (08/24/2024): Currently on [...] contact at IP and on admission to [facility] for confirmation of dosing Q trimester urine drug screen Declined mantra services Encounters Date Type Department Care Team Description 01/30/2025 11:15 AM EST Office Visit Obstetrics and Gynecology - [address] [address] Katy Willis, KERRY Women's annual routine gynecological examination (Primary Dx) from Last 3 Months Immunizations Name Administration Dates Next Due DTaP (Infanrix) 6wks to less than 7yo ,12/27/1985,1984,1983,1984 Hep B, Unspecified 02/05/2000,07/31/1997 Hepatitis B (Oobaplv-Q-Vmlor , Recombivax HB-Adult) 19yo and older 05/05/2016 [...] History Date Comments History of opioid abuse ([facility] V24, [facility] V28) 07/06/2012 DX:History of opioid abuse ( [facility]); COMMENT: Currently in program; on Suboxone 16 [...] for your loved ones. For example, children's counselor or elderly care for an older adult? [...] oz) M Vag-S pont Livin g Delivery Location:[facility] 2001 AB 2003 AB Comments:d&c 2004 AB 4w0 d 2008 AB 0 AB 2011 Term 40w 0d 3580 g (126.3 oz) M Vag-S pont Epidur al Livin g 9 9 Joe Aburto Delivery Location:[facility] 2021 Term 37w 5d M Vag-S [...] LAB MICROBIOLOGY METHOD 01/31/2025 3:40 PM EST [facility] Brushing/Spatula Cervix uteri structure / Unknown 01/30/2025 11:42 AM EST 01/31/2025 6:10 AM EST us Katy Willis CNM LAB MOLECULAR DIAGNOSTICS O RDERABLES Final Result [facility] [address] [place] [address], [place] [phone] * Pap smear (01/30/2025 11:42 AM EST) Interpretation Negative for intraepithelial lesion or malignancy 02/04/2025 8:[address] [facility] General Categorization Negative 02/04/2025 8:47 AM EDT [facility] LMP 01/25/2025 [facility] Additional Information Abundant blood noted. 02/04/2025 8:[address] [facility] Specimen Adequacy Satisfactory for evaluation, endocervical/penaloza sformation zone component present 02/04/2025 8:[address] [facility] Pap Methodology Liquid Based Pap Test [facility] Disclaimer The Pap test is a screening test which carries an inherent false negative rate. These test results should be correlated with the patient's clinical findings and history. This Pap test was processed using an automated screening system. Technical cytopathology services provided by [facility], at [address] [place] [id number] (CLIA # [id number]/Emmaneul Hodge MD, Stockroom Helper.) 02/04/2025 8:[address] [facility] Console Pap Interpretation Reported 02/04/2025 8:[address] [facility] Brushing/Spatula Cervix uteri structure / Unknown 01/30/2025 11:42 AM EST 01/30/2025 11:43 AM EST Katy Willis [facility] CYTOLOGY ORDERABLES Fin al Result [facility] [address] [place] [address], * MG Mammo Digital Screening w Gunnar [...] is recommended in 1 year. MAMMO LOCATION: [facility], [address] [place] [address], [address], . -------- FINAL REPORT -------- Dictated By: Reina San Dictated Date: 10/17/2024 11:42 ET Assigned Physician: Reina San Reviewed and Electronically Signed By: Reina San Signed Date: 10/17/2024 11:47 ET Workstation ID: [id number] Transcribed By: Self Edit Transcribed Date: 10/17/2024 [...] is recommended in 1 year. MAMMO LOCATION: [facility], [address] [place] [address], [address], . -------- FINAL REPORT -------- Dictated By: Reina San Dictated Date: 10/17/2024 11:42 ET Assigned Physician: Reina San Reviewed and Electronically Signed By: Reina San Signed Date: 10/17/2024 11:47 ET Workstation ID: [id number] Transcribed By: Self Edit Transcribed Date: 10/17/2024 11:42 ET Ab [facility] IMG BI PROCEDURES Final Result * Lipid panel with reflex to direct LDL (10/05/2024 11:55 AM EST) Cholesterol 131 0 - 200 mg/dL LAB CHEMISTRY METHOD 10/05/2024 3:26 PM [facility] Triglycerides 115 0 - 150 mg/dL LAB CHEMISTRY METHOD 10/05/2024 3:26 PM [facility] HDL 51 >=40 mg/dL LAB CHEMISTRY METHOD 10/05/2024 3:26 PM [facility] LDL Calculated 57 0 - 100 mg/dL LAB CHEMISTRY METHOD 10/05/2024 3:26 PM [facility] VLDL Cholesterol John 23 mg/dL LAB CHEMISTRY METHOD 10/05/2024 3:26 PM [facility] Non HDL Chol. (LDL+VLDL) 80 <145 mg/dL LAB CHEMISTRY METHOD 10/05/2024 3:26 PM [facility] Chol/HDL Ratio 2.6 0.0 - 4.4 LAB CHEMISTRY METHOD 10/05/2024 3:26 PM [facility] Blood Venous blood specimen / Unknown Venipuncture / Unknown 10/05/2024 11:55 AM EST 10/05/2024 11:55 AM EST Ab [facility] LAB BLOOD ORDERABLES Final Res ult [facility] ([facility]) [facility] [address] [place] [address], [place] [phone] * HIV Screening (12/24/2021) HIV Screening Abstracted Historical Provider HEALTH MAINTENANCE Final Result * Hepatitis C Screening (12/24/2021) Hepatitis C Screening Abstracted Historical Provider HEALTH MAINTENANCE Final Result from Last 3 Months or Most Recently Relevant to Health Maintenance [place] [place] [id number] [facility] Care Teams Mold Changer Relationship Specialty Start Date End Date Kell Moulton MD PCP - General 01/18/23
== END ==
LOC: HO.CARD 15:06
PROVIDERS: PCP Physician Assistant Medical; Visit Provider Physician Assistant Medical
DX: R00.2 Palpitations (principal)
CPT/HCPCS: 93242

== ENCOUNTER 2025-05-03 11:03 | Outpatient (REF) | payer BC, SELFPAY ==
--- OUTSIDE RECORDS SUMMARY | 2025-05-03 11:55 | XMS_ITS | Clinical Summary ---
Author Organization [facility] [address] [facility] l[address] Address [address] [place] [address] Phone Care Team Providers Care Chemistry Manager Name Role Phone Kell Moulton MD Primary Care Provider [phone] Allergies No known active allergies Medications polyethylene [...] Suboxone maintenance treatme nt complicating , antepartum ([facility] V24, [facility] V28) 12/24/2021 01/30/2025 Overview (08/24/2024): Currently on 12 mg [place]: Pediatrics consult 05/17 10am GET RID OF ANESTHESIA CONSULT [facility] US Q 4 weeks Weekly testing at 32 weeks- getting BPPs Plan by pain management clinic in chart for pain at 36 weeks --Should be listed under the problem list where the patient goes and someone should contact at IP and on [facility] for confirmation of dosing Q trimester urine drug screen Declined mantra services Immunizations Name Administration Dates Next Due DTaP (Infanrix) 6wks to less than 7yo ,12/27/1985,1984,1983,1984 Hep B, Unspecified 02/05/2000,07/31/1997 Hepatitis B (Srzltfs-O-Iiotm , Recombivax HB-Adult) 19yo and older 05/05/2016 [...] BREAST SILICONE/EQ OTHER SURGICAL HISTORY 2003 PROCEDURE: [place] NASAL/SINUS NDSC SURG W/BX POLYPC/DBRDMT SPX; COMMENT: rhinoplasty Medical History Medical History Date Comments History of opioid abuse ([facility] V24, [facility] V28) 07/06/2012 DX:History of opioid abuse ( [facility]); COMMENT: Currently in program; on Suboxone [...] Peña Alive 2000 Son 2 Joe Alive 2013 Son 3 Javier Alive Social History Tobacco [...] for your loved ones. For example, child development specialist or elderly care for an older adult? [...] oz) M Vag-S pont Livin g Delivery Location:[facility] 2001 AB 2003 AB Comments:d&c 2004 AB 4w0 d 2007 AB 201 0 AB 2011 Term 40w 0d 3580 g (126.3 oz) M Vag-S pont Epidur al Livin g 9 9 Joe Aburto Delivery Location:[facility] 2021 Term 37w 5d M Vag-S pont Epidur al Livin g Javier schneider, KERRY Comments:induced for s uspected ICP Last Filed [...] Due Date Last Done Comments COVID-19 Vaccine () 07/29/2024 09/17/2022, 08/03/2021, 07/06/2021 Depression Screening 10/02/2025 10/02/2024 [...] Procedure Name Priority Date/Time Associated Diagnosis Comments HPV WITH REFLEX GENOTYPE Routine 01/30/2025 11:42 [...] LAB MICROBIOLOGY METHOD 01/31/2025 3:40 PM EST [facility] Brushing/Spatula Cervix uteri structure / Unknown 01/30/2025 11:42 AM EST 01/31/2025 6:10 AM EST Katy MCRAE LAB MOLECULAR DIAGNOSTICS O RDERABLES Final Result [facility] [address] [place] [address], [place] [phone] * MG Mammo Digital Screening w Gunnar [...] is recommended in 1 year. MAMMO LOCATION: [facility], [address] [place] [address], [address], . -------- FINAL REPORT -------- Dictated By: Reina San Dictated Date: 10/17/2024 11:42 ET Assigned Physician: Reina San Reviewed and Electronically Signed By: Reina San Signed Date: 10/17/2024 11:47 ET Workstation ID: [id number] Transcribed By: Self Edit Transcribed Date: 10/17/2024 [...] is recommended in 1 year. MAMMO LOCATION: [facility], [address] [place] [address], [address], . -------- FINAL REPORT -------- Dictated By: Reina San Dictated Date: 10/17/2024 11:42 ET Assigned Physician: Reina San Reviewed and Electronically Signed By: Reina San Signed Date: 10/17/2024 11:47 ET Workstation ID: [id number] Transcribed By: Self Edit Transcribed Date: 10/17/2024 11:42 ET Ab YOUSSEF IMG BI PROCEDURES Final Result * Lipid panel with reflex to direct LDL (10/05/2024 11:55 AM EST) [facility] Cholesterol 131 0 - 200 mg/dL LAB CHEMISTRY METHOD 10/05/2024 3:26 PM EST [facility] Triglycerides 115 0 - 150 mg/dL LAB CHEMISTRY METHOD 10/05/2024 3:26 PM EST [facility] HDL 51 >=40 mg/dL LAB CHEMISTRY METHOD 10/05/2024 3:26 PM EST [facility] LDL Calculated 57 0 - 100 mg/dL LAB CHEMISTRY METHOD 10/05/2024 3:26 PM EST [facility] VLDL Cholesterol John 23 mg/dL LAB CHEMISTRY METHOD 10/05/2024 3:26 PM EST [facility] Non HDL Chol. (LDL+VLDL) 80 <145 mg/dL LAB CHEMISTRY METHOD 10/05/2024 3:26 PM EST [facility] Chol/HDL Ratio 2.6 0.0 - 4.4 LAB CHEMISTRY METHOD 10/05/2024 3:26 PM EST [facility] Blood Venous blood specimen / Unknown Venipuncture / Unknown 10/05/2024 11:55 AM EST 10/05/2024 11:55 AM EST Ab [facility] LAB BLOOD ORDERABLES Final Res ult [facility] [address] [place] [address], [place] [phone] * Hm HIV Screening (12/24/2021) HIV Screening Abstracted Historical Provider HEALTH MAINTENANCE Final Result * Hepatitis C Screening (12/24/2021) Hepatitis C Screening Abstracted Historical Provider HEALTH MAINTENANCE Final Result from Last 3 Months or Most Recently Relevant to Health Maintenance Insurance [facility] Care Teams Chemistry Manager Relationship Specialty Start Date End Date Kell Moulton MD PCP - General 01/18/23
[2025-05-03 14:04] LABS: MANUAL DIFF FLAG NO
[2025-05-03 14:18] LABS: Basophils Percent Auto 0.7 % (0-2); Eosinophils Absolute Auto 0.1 X10*3/uL (0.0-0.4); Eosinophils Percent Auto 1.6 % (0-4); Hematocrit 34.6 % (37.0-47.0); Hemoglobin 11.5 g/dl (12.0-16.0); Imm Gran Abs Auto 0.01 X10*3/uL (0.00-0.03); Imm Gran Pct Auto 0.2 % (0.0-0.4); Lymphocytes Absolute Auto 1.8 X10*3/uL (1.2-4.9); Lymphocytes Percent Auto 41.8 % (20-40); Mean Corpuscular HGB Conc 33.2 g/dl (31.0-35.0); Mean Corpuscular Hemoglobin 29.9 pg (27.0-33.0); Mean Corpuscular Volume 90.1 fL (80.0-98.0); Mean Platelet Volume 10.9 fL (9.4-12.3); Monocytes Absolute Auto 0.4 X10*3/uL (0.1-1.2); Monocytes Percent Auto 8.7 % (2-11); Neutrophils Absolute Auto 2.1 x10*3/uL (2.0-8.3); Platelet Count 160 X10*3/uL (160-400); Red Blood Count 3.84 X10*6/uL (4.20-5.50); Red Cell Distribution Width 12.5 % (11.0-16.0); White Blood Count 4.4 X10*3/uL (4.8-10.8)
== END 2025-05-03 11:04 | disposition home or self-care (01) ==
LOC: HO.WFDLDS 11:03
PROVIDERS: Visit Provider Physician Assistant Medical
DX: D69.6 Thrombocytopenia, unspecified (principal)
CPT/HCPCS: 36415; 85025

== ENCOUNTER 2025-06-13 13:29 | Outpatient (REF) | payer BC, SELFPAY ==
--- OUTSIDE RECORDS SUMMARY | 2025-06-13 14:04 | XMS_ITS | Clinical Summary ---
Author Organization [facility] [address] [facility] l[address] Address [address] [place] [address] Phone Care Team Providers Care Manager Floral Name Role Phone Mya Smallwood Primary Care Provider [phone] Allergies No known active allergies Medications polyethylene [...] Suboxone maintenance treatme nt complicating , antepartum ([facility] V24, [facility] V28) 12/24/2021 01/30/2025 Overview (08/24/2024): Currently on [...] contact at IP and on admission to [facility] for confirmation of dosing Q trimester urine drug screen Declined mantra services Encounters Date Type Department Care Team Description 05/20/2025 Telephone [facility] [address] [place] [address] Kell Moulton MD Referral (Spoke to patient regarding scheduling a new visit appointment with the distance education faculty liaison. Patient stated she has a new PCP and has been referred to another cardiology office. Thank you.) from Last 3 Months Immunizations Name Administration Dates Next Due DTaP (Infanrix) 6wks to less than 7yo ,12/27/1985,1984,1983,1984 Hep B, Unspecified 02/05/2000,07/31/1997 Hepatitis B (Fqefkgt-V-Tsdtw , Recombivax HB-Adult) 19yo and older 05/05/2016 [...] BREAST SILICONE/EQ OTHER SURGICAL HISTORY 2003 PROCEDURE: [place] NASAL/SINUS NDSC SURG W/BX POLYPC/DBRDMT SPX; COMMENT: rhinoplasty Medical History Medical History Date Comments History of opioid abuse ([facility] V24, [facility] V28) 07/06/2012 DX:History of opioid abuse ( [facility]); COMMENT: Currently in program; [...] Record ed Within the last 3 months, kiko pickard many times did you visit the emergency [...] your loved ones. For example, child care coordinator or elderly care for an older adult? [...] oz) M Vag-S pont Livin g Delivery Location:[facility] 2001 AB 2003 AB Comments:d&c 2004 AB 4w0 d 2007 AB 0 AB 2011 Term 40w 0d 3580 g (126.3 oz) M Vag-S pont Epidur al Livin g 9 9 Joe Aburto Delivery Location:[facility] 2021 Term 37w 5d M Vag-S pont Epidur al Livin g Javier schneider, [facility] Comments:induced for s uspected ICP Last Filed Vital Signs Vital Sign Reading Time Taken Comments Blood Pressure 103/63 01/30/2025 11:26 AM EST Pulse 66 01/30/2025 11:26 AM EST Temperature 35.8 C (96.4 F) 10/02/2024 8:59 AM EST Respiratory Rate 14 01/30/2025 11:26 AM EST Oxygen Saturation - - Inhaled Oxygen Concentration - - Weight 76.3 kg (168 lb 3.2 oz) 01/30/2025 11:26 AM EST Height 158 cm (5' 2.21 ) 01/30/2025 11:26 AM EST Body Mass Index 30.56 01/30/2025 11:26 AM EST Plan of Treatment Health Maintenance Due Date Last Done Comments COVID-19 Vaccine ( season) 2024 09/17/2022, 08/03/2021, 07/06/2021 Influenza Vaccine (#1) 2025 , 09/17/2022, 08/13/2020, Additional history exists Depression Screening 10/02/2025 10/02/2024 Social Influencers of [...] Completed 12/24/2021 Hepatitis C Screening Completed 12/24/2021 HIB Vaccines Aged Out No longer eligi [...] 5 Years) and At-Risk Patients (6 to 49 Years) Aged Out No longer eligible based [...] LAB MICROBIOLOGY METHOD 01/31/2025 3:40 PM EST [facility] Brushing/Spatula Cervix uteri structure / Unknown 01/30/2025 11:42 AM EST 01/31/2025 6:10 AM EST us Katy Willis CNM LAB MOLECULAR DIAGNOSTICS O RDERABLES Final Result [facility] [address] [place] [address], [place] [phone] * MG Mammo Digital Screening w Gunnar [...] is recommended in 1 year. MAMMO LOCATION: [facility], [address] [place] [address], [address], . -------- FINAL REPORT -------- Dictated By: Reina San Dictated Date: 10/17/2024 11:42 ET Assigned Physician: Reina San Reviewed and Electronically Signed By: Reina San Signed Date: 10/17/2024 11:47 ET Workstation ID: [id number] Transcribed By: Self Edit Transcribed Date: 10/17/2024 11:42 ET Narrative 10/17/2024 11:47 AM EST EXAM: Screening Mammogram CLINICAL: 39 years old, Female, routine annual exam. COMPARISON: This is a baseline exam. TECHNIQUE: Bilateral MLO and CC views were obtained digitally with 3-D mammogram (digital breast tomosynthesis). Computer-aided detection was utilized in evaluation of this exam (CAD). Implant and implant displaced views performed. FINDINGS: No [...] is recommended in 1 year. MAMMO LOCATION: [facility], [address] [place] [address], [address], . -------- FINAL REPORT -------- Dictated By: Reina San Dictated Date: 10/17/2024 11:42 ET Assigned Physician: Reina San Reviewed and Electronically Signed By: Reina San Signed Date: 10/17/2024 11:47 ET Workstation ID: [id number] Transcribed By: Self Edit Transcribed Date: 10/17/2024 11:42 ET Ab YOUSSEF IMG BI PROCEDURES Final Result * Lipid panel with reflex to direct LDL (10/05/2024 11:55 AM EST) Cholesterol 131 0 - 200 mg/dL LAB CHEMISTRY METHOD 10/05/2024 3:26 PM [facility] Triglycerides 115 0 - 150 mg/dL LAB CHEMISTRY METHOD 10/05/2024 3:26 PM [facility] HDL 51 >=40 mg/dL LAB CHEMISTRY METHOD 10/05/2024 3:26 PM [facility] LDL Calculated 57 0 - 100 mg/dL LAB CHEMISTRY METHOD 10/05/2024 3:26 PM [facility] VLDL Cholesterol John 23 mg/dL LAB CHEMISTRY METHOD 10/05/2024 3:26 PM [facility] Non HDL Chol. (LDL+VLDL) 80 <145 mg/dL LAB CHEMISTRY METHOD 10/05/2024 3:26 PM [facility] Chol/HDL Ratio 2.6 0.0 - 4.4 LAB CHEMISTRY METHOD 10/05/2024 3:26 PM [facility] Blood Venous blood specimen / Unknown Venipuncture / Unknown 10/05/2024 11:55 AM EST 10/05/2024 11:55 AM EST Ab [facility] LAB BLOOD ORDERABLES Final Res ult [facility] [address] [place] [address], [place] [phone] * HIV Screening (12/24/2021) HIV Screening Abstracted Historical Provider HEALTH MAINTENANCE Final Result * Hepatitis C Screening (12/24/2021) Hepatitis C Screening Abstracted Historical Provider HEALTH MAINTENANCE Final Result from Last 3 Months or Most Recently Relevant to Health [place] [id number] [facility] Care Teams Manager Floral Relationship Specialty Start Date End Date Mya Smallwood PA [address] [place] [address] [place] [address] PCP - General Physician Infant Childcare Provider 05/29/25
[2025-06-13 17:33] LABS: MANUAL DIFF FLAG NO
[2025-06-13 17:41] LABS: Hematocrit 35.3 % (37.0-47.0); Hemoglobin 12.1 g/dl (12.0-16.0); Imm Gran Abs Auto 0.02 X10*3/uL (0.00-0.03); Imm Gran Pct Auto 0.3 % (0.0-0.4); Lymphocytes Absolute Auto 2.1 X10*3/uL (1.2-4.9); Mean Corpuscular HGB Conc 34.3 g/dl (31.0-35.0); Mean Corpuscular Hemoglobin 30.6 pg (27.0-33.0); Mean Corpuscular Volume 89.4 fL (80.0-98.0); NRBC Abs Auto 0.000 X10*3/uL (0.0-0.012); NRBC Pct Auto 0.0 /100WBC (0.0-0.2); Platelet Count 182 X10*3/uL (160-400); Red Blood Count 3.95 X10*6/uL (4.20-5.50); White Blood Count 6.1 X10*3/uL (4.8-10.8)
[2025-06-13 17:58] LABS: Iron 59 mcg/dL (30-160); Percent Iron Saturation 25 % (15-50); Total Iron Binding Capacity 240 mcg/dL (228-428); Unsaturated Iron Binding 181 ug/dL
[2025-06-13 18:14] LABS: Ferritin 32 ng/mL (10-250)
[2025-06-13 18:27] LABS: Folate 13.9 ng/mL (> or = 4.0); Vitamin B12 725 pg/mL (200-900)
== END 2025-06-13 13:30 | disposition home or self-care (01) ==
LOC: HO.WFDLDS 13:29
PROVIDERS: Visit Provider Physician Assistant Medical
DX: D64.9 Anemia, unspecified (principal)
CPT/HCPCS: 36415; 82607; 82728; 82746; 83540; 85025

== ENCOUNTER 2025-07-18 09:35 | Outpatient (AMB) | payer BC, SELFPAY ==
--- NOTE | 2025-07-18 09:40 | MHC.OFFVIS ---
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 The palpitations have been present for a few years, initially linked to energy drink consumption, which the patient has ceased. They occur randomly and are more noticeable when the patient is at rest, particularly in bed. The patient believes the palpitations are from premature atrial contractions (PACs) through self-monitoring. Chest pressure is noted primarily in the mornings, which she believes is related to vaping habits. There are no exertional chest discomfort type complaints. The patient has a history of opioid use disorder, managed with buprenorphine for 13 years, related to pill use. 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 [facility] Medical History (Updated 05/27/25 @ 16:40 by MIKAEL Bills) Right foot pain Decreased platelet count Heart palpitations Anxiety HSV infection Screening for cardiovascular condition Mild anemia Dense breast tissue Depression with anxiety Encounter for monitoring Suboxone maintenance therapy Dysphagia Thyroid nodule Surgical History Hx of cosmetic surgery Family History Father Substance abuse Mother Cancer Maternal Grandfather HTN (hypertension) Paternal Grandfather HTN (hypertension) Maternal Grandmother HTN (hypertension) Diabetes Paternal Grandmother Cardiovascular disease Social History Household Members: Significant Other and Children Both parents involved: No Caregiver staying overnight: No Housing: House Are you a primary healthcare management to a significant other at home: Yes Do you presently have visiting nurse or other home services: No 75 years or older and lives alone: No Alcohol intake: current Alcohol intake frequency: a few times a month Patient Tobacco Use Status: Never used Tobacco e-Cigarette/Vaping Use: Currently Using Second Hand Smoke Exposure: No service: No Current occupational status: employed 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 Cognitive needs: No Hearing needs: No Vision needs: Yes (wear glasses) Review of Systems Const Denies weakness ENT Denies dizziness Card Denies chest pain, Denies chest pain with activity, Denies syncope, Denies rapid heart rate, Denies pedal edema, Denies edema, Denies leg edema, Denies lightheadedness, Reports palpitations, Denies dyspnea, Denies dyspnea on exertion and Denies orthopnea Resp Denies cough, Denies dyspnea and Denies dyspnea on exertion GI Denies hematochezia and Denies change in stool character Musc Denies abnormal gait, Denies muscle cramps, Denies muscle weakness, Denies numbness, Denies radiating pain into limb and Denies tingling Neuro Denies abnormal gait, Denies dizziness, Denies syncope, Denies numbness, Denies tingling and Denies weakness Endo Reports palpitations Physical Exam Vital Signs: Last Vital Signs Pulse 69 07/18/25 09:41 BP 108/60 07/18/25 09:41 BMI result Body Mass Index 25.9 Const General: comfortable and no acute distress Orientation/consciousness: patient oriented x3 HEENT Other: Unremarkable Head: Yes normal to inspection Neck Neck: Yes normal visual inspection Chest Chest palpation & inspection: normal inspection of the chest Resp Auscultation: clear to auscultation bilaterally Cardio Palpation: normal PMI Heart sounds: S1 normal heart sound present, S2 normal heart sound present, no gallops, no murmurs and no rubs GI Palpation (GI): Soft to palpation Back/Spine/Pelvis Other: unremarkable Skin General skin exam: no rashes or lesions noted Neuro General: patient oriented x3 Extrem General: Yes normal to inspection Psych Mental Status: mental status grossly normal Assessment & Plan Assessment & Plan (1) Heart palpitations: Code(s): R00.2 - Palpitations Category: Medical Plan EKG shows underlying sinus rhythm at 66/Min; sinus arrhythmias; nonspecific ST-T changes; normal IL and corrected QT. In the Holter monitor, the analyzed time was only 18 hours. In that time, minimal burden of PACs/PVCs. A 14-day Holter monitor will be implemented to evaluate the palpitations, aiming to capture their occurrence and characteristics. An echocardiogram is scheduled to assess cardiac anatomy and function, as the patient has not undergone this test before. The patient is encouraged to continue abstaining from energy drinks and to reduce vaping to help mitigate chest pressure. A follow-up appointment will be arranged contingent on the findings from the monitoring and echocardiogram. Discussion Notes I discussed with the patient the plan to use a 14-day Holter monitor to better understand the palpitations and their triggers. We also talked about scheduling an echocardiogram to examine the heart's structure and function. I advised the patient to avoid energy drinks and consider reducing vaping to alleviate chest pressure. The patient was informed that follow-up would be based on the results of these tests. Patient was informed and verbally consented to the use of an ambient scribe for clinic note documentation during this visit. Orders: Orders CA echo transthoracic complete Today R00.2 - Palpitations ECG 14 day holter monitor Today R00.2 - Palpitations Patient Instructions: - Wear the 14-day Holter monitor as instructed to track heart activity. - Attend the scheduled echocardiogram appointment to check heart health. - Avoid energy drinks and try to reduce vaping to help with chest pressure. - Follow up after the tests to discuss results and next steps. Coding Level of Care Code New Pt Level 3 (57474) Diagnoses Heart palpitations R00.2
[2025-07-18 09:41] VITALS: BP 108/60; PULSE 69; BMI 25.9
--- OUTSIDE RECORDS SUMMARY | 2025-07-18 10:52 | XMS_ITS | Clinical Summary ---
Author Organization [facility] [address] [facility] lding Address [address] [place] [address] Phone Care Team Providers Care Testing Specialist Name Role Phone Mya Smallwood Primary Care Provider [phone] Allergies No known active allergies Medications polyethylene [...] Suboxone maintenance treatme nt complicating , antepartum ([facility] V24, [facility] V28) 12/24/2021 01/30/2025 Overview (08/24/2024): Currently on [...] at IP and on admission to [facility] for confirmation of dosing Q trimester urine drug screen Declined mantra services Encounters Date Type Department Care Team Description 05/20/2025 Telephone [facility] [address] [place] [address] Kell Moulton MD Referral (Spoke to patient regarding scheduling a new visit appointment with the boring machine set up operator. Patient stated she has a new PCP and has been referred to another cardiology office. Thank you.) from Last 3 Months Immunizations Name Administration Dates Next Due DTaP (Infanrix) 6wks to less than 7yo ,12/27/1985,1984,1983,1984 Hep B, Unspecified 02/05/2000,07/31/1997 Hepatitis B (Kqbqtow-F-Mbzsn , Recombivax HB-Adult) 19yo and older 05/05/2016 [...] BREAST SILICONE/EQ OTHER SURGICAL HISTORY 2003 PROCEDURE: [place] NASAL/SINUS NDSC SURG W/BX POLYPC/DBRDMT SPX; COMMENT: rhinoplasty Medical History Medical History Date Comments History of opioid abuse ([facility] V24, [facility] V28) 07/06/2012 DX:History of opioid abuse ( [facility]); COMMENT: Currently in program; on Suboxone 16 [...] for your loved ones. For example, child advocate or elderly care for an older adult? [...] oz) M Vag-S pont Livin g Delivery Location:[facility] 2001 AB 2003 AB Comments:d&c 2004 AB 4w0 d 2007 AB 0 AB 2011 Term 40w 0d 3580 g (126.3 oz) M Vag-S pont Epidur al Livin g 9 9 Joe Aburto Delivery Location:[facility] 2021 Term 37w 5d M Vag-S [...] 01/30/2025 11:26 AM EST Plan of Treatment Upcoming Encounters Date Type Department Care Team ([facility] st Contact Info) Description 08/22/2025 1:30 PM EDT Office Visit Orthopedic Surgery - [place] [address] [phone] Carl Cantu, ELIZABETH [address] [address] Health Maintenance Due Date Last Done Comments COVID-19 Vaccine ( season) 2024 09/17/2022, 08/03/2021, 07/06/2021 Depression Screening 11/28/2024 Influenza Vaccine (#1) 2025 , 09/17/2022, 08/13/2020, Additional history exists Social Influencers of Health Screening 10/02/2025 10/02/2024 [...] AM EST 01/31/2025 6:10 AM EST Katy B Lazaro [facility] LAB MOLECULAR DIAGNOSTICS O RDERABLES Final Result [facility] [address] [place] [address], [place] [phone] * MG Mammo Digital Screening w Gunnar [...] is recommended in 1 year. MAMMO LOCATION: [facility], [address] [place] [address], [address], . -------- FINAL REPORT -------- Dictated By: Reina San Dictated Date: 10/17/2024 11:42 ET Assigned Physician: Reina San Reviewed and Electronically Signed By: Reina San Signed Date: 10/17/2024 11:47 ET Workstation ID: [id number] Transcribed By: Self Edit Transcribed Date: 10/17/2024 [...] is recommended in 1 year. MAMMO LOCATION: [facility], [address] [place] [address], [address], . -------- FINAL REPORT -------- Dictated By: Reina San Dictated Date: 10/17/2024 11:42 ET Assigned Physician: Reina San Reviewed and Electronically Signed By: Reina San Signed Date: 10/17/2024 11:47 ET Workstation ID: [id number] Transcribed By: Self Edit Transcribed Date: 10/17/2024 11:42 ET Ab YOUSSEF IMG BI PROCEDURES Final Result * Lipid panel with reflex to direct LDL (10/05/2024 11:55 AM EST) Cholesterol 131 0 - 200 mg/dL LAB CHEMISTRY METHOD 10/05/2024 3:26 PM [facility] Triglycerides 115 0 - 150 mg/dL LAB CHEMISTRY METHOD 10/05/2024 3:26 PM EST [facility] HDL 51 >=40 mg/dL LAB CHEMISTRY METHOD 10/05/2024 3:26 PM [facility] LDL Calculated 57 0 - 100 mg/dL LAB CHEMISTRY METHOD 10/05/2024 3:26 PM [facility] VLDL Cholesterol John 23 mg/dL LAB CHEMISTRY METHOD 10/05/2024 3:26 PM [facility] Non HDL Chol. (LDL+VLDL) 80 <145 mg/dL LAB CHEMISTRY METHOD 10/05/2024 3:26 PM EST [facility] Chol/HDL Ratio 2.6 0.0 - 4.4 LAB CHEMISTRY METHOD 10/05/2024 3:26 PM EST [facility] Blood Venous blood specimen / Unknown Venipuncture / Unknown 10/05/2024 11:55 AM EST 10/05/2024 11:55 AM EST Ab [facility] LAB BLOOD ORDERABLES Final Res ult [facility] [address] [place] [address], * HIV Screening (12/24/2021) HIV Screening Abstracted Historical Provider HEALTH MAINTENANCE Final Result * Hepatitis C Screening (12/24/2021) Pathologist [facility] Hepatitis C Screening Abstracted Historical Provider HEALTH MAINTENANCE Final Result from Last 3 Months or Most Recently Relevant to Health Maintenance [place] [id number] [facility] Care Teams Testing Specialist Relationship Specialty Start Date End Date Mya Smallwood PA [address] [place] [address] [place] [id number] PCP - General Physician Semiconductor Engineer 05/29/25
== END 2025-07-18 10:04 | disposition home or self-care (01) ==
LOC: HO.HCS 09:36
PROVIDERS: PCP Physician Assistant Medical; Visit Provider Internal Medicine
DX: R00.2 Palpitations (principal)
CPT/HCPCS: 99203

== ENCOUNTER → 2025-08-20 10:43 | Outpatient (REF) | payer BC, SELFPAY ==
--- NOTE | 2025-08-20 10:48 | CA_ITS ---
Transthoracic Echocardiogram Patient (Last, First, Middle): Katherin Lau L Gender: F Date of : 1985 Age: 40 Procedure Date: 08/20/2025 Procedure Type: Transthoracic Echocardiogram Location: OP Height: 170.18 cm Weight: 74.84 kg BSA: 1.86 m2 Heart Rate: bpm BP: 123 / 70 mmHg Roving Frame Tender: VH/RC Referring MD: Geovanni Driscoll MD Symptoms: R00.2 - Palpitations Study Quality: Adequate ECG Rhythm: Sinus Conclusions: - The left ventricular systolic function is normal. The calculated ejection fraction is 63% by biplane method. - No obvious valvular pathology seen on this study. Findings Left Ventricle Normal left ventricular cavity size. There is normal left ventricular wall thickness. The left ventricular systolic function is normal. The calculated ejection fraction is 63% by biplane method. There is no evidence of regional wall motion abnormalities. Diastolic function is normal for age. Right Ventricle Normal right ventricular cavity size and systolic function. Atria Both atria are normal in size. There is no evidence of interatrial shunt by color Doppler. Aortic Valve There is a normal trileaflet aortic valve. There is no aortic valve stenosis. There is trace (trivial) aortic valve regurgitation. Mitral Valve There is mild anterior mitral leaflet thickening. There is mild mitral valve regurgitation. There is no mitral valve stenosis. Pulmonic Valve There is trace pulmonic valve regurgitation. Tricuspid Valve There is mild tricuspid valve regurgitation. There is no evidence of pulmonary hypertension. Great Vessels The asc aorta is normal in size. Venous The inferior vena cava is normal in size and collapses greater than 50% with inspiration. Pericardium/Pleural There is no evidence of pericardial effusion. Prior Study Comparison No prior study available for comparison. Recommendations, Care & Conclusions No obvious valvular pathology seen on this study. Measurements 2D Linear Measurements IVSd: 1.00 0.6-0.9/0.6-1.0 cm LVIDd: 4.39 3.9-5.3/4.2-5.9 cm LVIDd Index: 2.36 2.4-3.2/2.2-3.1 cm/m2 LVIDs: 2.73 2.0-3.6 cm LVPWd: 0.81 0.7-1.1 cm Ao Root: 3.00 2.1-3.5 cm LA Diam: 3.00 2.7-3.8/3.0-4.0 cm LAIDs Index: 1.61 1.5-2.3 cm/m2 LV Mass: 159.75 67-162/88-224 g LV Mass Index: 85.89 43-95/49-115 g/m2 LVOT Diam: 2.10 3.0+(-)1.3 cm 2D Systolic Function EF 4C: 56.50 >55% EF 2C: 70.40 >55% EF BiP: 63.00 >55% Mitral Valve MV Pk E: 0.78 MV PK A: 0.52 MV Decel Time: 240.00 E/A: 1.50 E'Lateral: 16.40 E'Medial: 11.30 E/E' Med: 6.90 E/E' Lat: 4.80 PHT: 55.00 MVA PHT: 4.00 Decel Rogers: 4.47 Aortic Valve AoV Pk Erik: 1.38 AoV Mn Erik: 0.99 AoV VTI: 0.37 AoV Pk Grad: 8.00 Aov Mn Grad: 4.00 PINA Cont.VTI: 2.52 LVOT LVOT Pk Erik: 1.12 LVOT Mn Erik: 0.79 LVOT VTI: 0.27 LVOT Pk Grad: 5.00 LVOT Mn Grad: 3.00 LVOT Diam: 2.10 LVOT Area: 3.46 Diastolic Function MV Pk E: 0.78 MV Pk A: 0.52 E/A: 1.50 E'Medial: 11.30 E/E' Med: 6.90 E' Laterial: 16.40 E/E' Lat: 4.80 Right Ventricle TAPSE (mm): 26.00 TVS' Erik: 12.00 Tricuspid Valve TR Pk Erik: 1.92 TR Pk Grad: 15.00 RA Press: 3.00 RVSP: 18.00 Great Vessels Aorta Ao Root-2D: 3.00 2.0-3.7 cm Ao Asc: 2.90 2.1-3.4 cm Pulmonary Veins Pulm Vein S/D 1.00 Pulmonary Valve PV Pk Erik: 0.79 Peak PV Grad: 2.00 Updated in Other Vendor System with Status of Final Geovanni Driscoll MD electronically signed on 08/21/2025 1:30:29 PM with status of Final
--- NOTE | 2025-08-20 10:48 | HM_ITS ---
Conclusion: 1. Patient was monitored for total period of 14 days 2. Baseline was normal sinus rhythm with average heart of 75 beats per minute 3. Rare PACs and PVCs noted 4. Three short events of SVT, longest lasting 6 beats at 162 beats per minute 5. No significant pauses noted 6. Patient marked the counter 1 time with symptoms of palpitations correlating with sinus tachycardia MTDD
--- OUTSIDE RECORDS SUMMARY | 2025-08-20 13:09 | XMS_ITS | Clinical Summary ---
Author Organization [facility] [address] [facility] lding Address [address] [place] [address] Phone Care Team Providers Care Wet And Dry Sugar Bin Operator Name Role Phone Mya Smallwood Primary Care Provider Allergies No known active allergies Medications polyethylene [...] Suboxone maintenance treatme nt complicating , antepartum ([facility] V24, [facility] V28) 12/24/2021 01/30/2025 Overview (08/24/2024): Currently on 12 mg [place]: Pediatrics consult 05/17 10am GET RID OF ANESTHESIA CONSULT [facility] US Q 4 weeks Weekly testing at 32 weeks- getting BPPs Plan by pain management clinic in chart for pain at 36 weeks --Should be listed under the problem list where the patient goes and someone should contact at IP and on admission to [facility] for confirmation of dosing Q trimester urine drug screen Declined mantra services Encounters Date Type Department Care Team Description 05/20/2025 Telephone [facility] [address] [place] [address] Kell Moulton MD from Last 3 Months Immunizations Name Administration Dates Next Due DTaP (Infanrix) 6wks to less than 7yo ,12/27/1985,1984,1983,1984 Hep B, Unspecified 02/05/2000,07/31/1997 Hepatitis B (Rqsttfv-M-Cphyp , Recombivax HB-Adult) 19yo and older 05/05/2016 [...] BREAST SILICONE/EQ OTHER SURGICAL HISTORY 2003 PROCEDURE: [place] NASAL/SINUS NDSC SURG W/BX POLYPC/DBRDMT SPX; COMMENT: rhinoplasty Medical History Medical History Date Comments History of opioid abuse ([facility] V24, [facility] V28) 07/06/2012 DX:History of opioid abuse ( [facility]); COMMENT: Currently in program; on Suboxone [...] care for your loved ones. For example, director of early childhood or elderly care for an older adult? [...] Sexual Orientation Not on file Obstetrics History * This document contains information received from the source organization and may not represent a complete record from that organization. Para Term AB IAB SAB Ectopic Multiple Livin g Live Births 8 3 3 3 3 Date Outcome GA Total Labor Labor/2nd/3rd Weight Sex Type Anes PTL Luz A1 A5 Name Clin 2000 Term 37w 0d 3260 g (115 oz) M Vag-S pont Livin g Delivery Location:[facility] 2002 2003 2004 2008 0 2011 Term 40w 0d 3580 g (126.3 oz) M Vag-S pont Epidur al Livin g 9 9 Joe Aburto Delivery Location:[facility] 2021 Term 37w 5d M Vag-S pont [...] Care Team (Late st Contact Info) Description 08/22/2025 1:30 PM EDT Office Visit Orthopedic Surgery - [place] [address] [phone] Carl Cantu, DPJohn [address] [address] Health Maintenance Due Date Last Done Comments Depression Screening 11/28/2024 COVID-19 Vaccine ( season) 2025 09/17/2022, 08/03/2021, 07/06/2021 Influenza Vaccine (#1) 2025 [...] LAB MICROBIOLOGY METHOD 01/31/2025 3:40 PM EST [facility] Brushing/Spatula Cervix uteri structure / Unknown 01/30/2025 11:42 AM EST 01/31/2025 6:10 AM EST Katy Willis [facility] MOLECULAR DIAGNOSTICS O RDERABLES Final Result [facility]) [facility] [address] [place] [address], [place] [phone] * MG Mammo Digital Screening w Gunnar [...] recommended in 1 year. MAMMO LOCATION: [facility], [address] [place] [address], [address], . -------- FINAL REPORT -------- Dictated By: Reina San Dictated Date: 10/17/2024 11:42 ET Assigned Physician: Reina San Reviewed and Electronically Signed By: Reina San Signed Date: 10/17/2024 11:47 ET Workstation ID: [id number] Transcribed By: Self Edit Transcribed Date: 10/17/2024 [...] recommended in 1 year. MAMMO LOCATION: [facility], [address] [place] [address], [address], . -------- FINAL REPORT -------- Dictated By: Reina San Dictated Date: 10/17/2024 11:42 ET Assigned Physician: Reina San Reviewed and Electronically Signed By: Reina San Signed Date: 10/17/2024 11:47 ET Workstation ID: [id number] Transcribed By: Self Edit Transcribed Date: 10/17/2024 11:42 ET Ab YOUSSEF IMG BI PROCEDURES Final Result * Lipid panel with reflex to direct LDL (10/05/2024 11:55 AM EST) Cholesterol 131 0 - 200 mg/dL LAB CHEMISTRY METHOD 10/05/2024 3:26 PM [facility] Triglycerides 115 0 - 150 mg/dL LAB CHEMISTRY METHOD 10/05/2024 3:26 PM [facility] HDL 51 >=40 mg/dL LAB CHEMISTRY METHOD 10/05/2024 3:26 PM [facility] LDL Calculated 57 0 - 100 mg/dL LAB CHEMISTRY METHOD 10/05/2024 3:26 PM [facility] VLDL Cholesterol John 23 mg/dL LAB CHEMISTRY METHOD 10/05/2024 3:26 PM [facility] Non HDL Chol. (LDL+VLDL) 80 <145 mg/dL LAB CHEMISTRY METHOD 10/05/2024 3:26 PM EST [facility] Chol/HDL Ratio 2.6 0.0 - 4.4 LAB CHEMISTRY METHOD 10/05/2024 3:26 PM EST [facility] Blood Venous blood specimen / Unknown Venipuncture / Unknown 10/05/2024 11:55 AM EST 10/05/2024 11:55 AM EST Ab [facility] LAB BLOOD ORDERABLES Final Res ult [facility] [address] [place] [address], * HIV Screening (12/24/2021) HIV Screening Abstracted Historical Provider HEALTH MAINTENANCE Final Result * Hepatitis C Screening (12/24/2021) Hepatitis C Screening Abstracted Historical Provider HEALTH MAINTENANCE Final Result from Last 3 Months or Most Recently Relevant to Health Maintenance [facility] [place] [place] [id number] [facility] Care Teams Wet And Dry Sugar Bin Operator Relationship Specialty Start Date End Date Mya Smallwood PA [address] [place] [address] [place] [address] PCP - General Physician Warehouse Supervisor 05/29/25
== END ==
LOC: HO.CARD 10:43
PROVIDERS: PCP Physician Assistant Medical; Visit Provider Internal Medicine
DX: R00.2 Palpitations (principal)
CPT/HCPCS: 93246; 93306

== ENCOUNTER → 2025-08-20 10:48 | Outpatient (BNV) | payer BC, SELFPAY | PROVIDERS: PCP Physician Assistant Medical; Visit Provider Internal Medicine | DX: R00.2 Palpitations (principal); I35.1 Nonrheumatic aortic (valve) insufficiency | CPT/HCPCS: 93306 ==

== ENCOUNTER 2025-10-14 10:09 | Outpatient (AMB) | payer BC, SELFPAY ==
--- NOTE | 2025-10-14 10:21 | MHC.PC.OV ---
Vital Signs 10/14/25 10:23 Height 5 ft 7 in Weight 173 lb BMI 27.1 BP 110/72 Blood Pressure Location Rt brachial Position Sitting Respiration 12 Pulse 78 Pulse Source Pulse Oximeter Temp 98.4 F Temp Source Oral Pulse Oximetry (%) 99 Oxygen Delivery Method Room Air Intake Visit Reasons: physical exam Intake Note: Physical Embossograph Operator Required: No Allergies No Known Allergies Allergy (Verified 10/14/25 10:22) Medication List - Last Reconciled 10/14/25 by MIKAEL Bills buprenorphine HCl 8 mg sublingual DAILY cholecalciferol (vitamin D3) PO [fiber PO] [magnesium PO] multivitamin 1 tab PO DAILY [probiotic PO] [vitamin b12 PO] [vitamin b6 PO] Tobacco use date assessed: 10/14/25 Dental Screening Dental Screen Date: 01/24/25 HPI HPI Comments History of Present Illness Details This is a 40-year-old female with a past medical history of lymphadenopathy, a thyroid nodule and depression with anxiety presenting for a physical exam. She saw [facility] for foot pain, and an MRI demonstrated a lesion on her cuboid bone. She had a biopsy of this done on Tuesday, and she is waiting for the results. The imaging findings warmer consistent with a benign lesion per patient. Thyroid nodule-followed by endocrinology. She is following up with Cardiology on for palpitations. She started seeing [facility]. She got a reminder to call and schedule her mammogram. [facility] reached out to her. She is up-to-date with Gynecology. She has a history of mild anemia, and she is going to do lab work today. .ROS: Constitutional: No unexplained weight loss, fever, chills, fatigue or night sweats. Eyes: No vision changes, blurry vision, double vision, eye pain, eye redness, eye discharge. ENT: No hearing loss, sneezing, congestion, runny nose or sore throat. Respiratory: No shortness of breath, cough or sputum production. Cardiovascular: No chest pain, chest pressure or chest discomfort. No palpitations or pedal edema. Gastrointestinal: No anorexia, nausea, vomiting or diarrhea. No abdominal pain or blood in stool. Genitourinary: No dysuria, hematuria, urinary frequency. Neurologic: No headache, dizziness, syncope, unilateral weakness, ataxia, numbness or tingling in the extremities. Musculoskeletal: See HPI Hematologic/Lymphatics: No bleeding or bruising. No painful lymph nodes. Skin: No rash , sees Dermatology for skin exams Endocrine: No cold or heat intolerance. No polyuria or polydipsia. Psychiatric: No SI/HI. Physical exam: Constitutional: Alert, in no distress. Eyes: Pupils are equal, round and reactive to light. Extraocular muscles intact. Ear, Nose and Throat: Canals clear. TMs normal. Normal nasal mucosa. No nasal discharge. No oral lesions. Neck: Supple, Full range of motion. No lymphadenopathy. Palpable right thyroid nodule. Respiratory: Clear to auscultation. Cardiovascular: S1 S2 regular. No murmurs. Gastrointestinal: Abdomen soft, non-tender, non-distended. Normal bowel sounds. No palpable masses. Neurologic: No focal neurological deficits. Symmetric patellar reflexes. Moves all extremities spontaneously. Skin: No rashes Musculoskeletal: No gross deformities. Extremities: Warm and well perfused. No clubbing, cyanosis or edema. Intact peripheral pulses bilaterally. Psychiatric: Normal mood and affect [facility] Medical History (Updated 10/14/25 @ 10:58 by MIKAEL Bills) Routine physical examination Right foot pain Decreased platelet count Heart palpitations Anxiety HSV infection Screening for cardiovascular condition Mild anemia Dense breast tissue Depression with anxiety Encounter for monitoring Suboxone maintenance therapy Dysphagia Thyroid nodule Surgical History Hx of cosmetic surgery Family History Father Substance abuse Mother Cancer Maternal Grandfather HTN (hypertension) Paternal Grandfather HTN (hypertension) Maternal Grandmother HTN (hypertension) Diabetes Paternal Grandmother Cardiovascular disease Social History Household Members: Significant Other and Children Both parents involved: No Caregiver staying overnight: No Housing: House Are you a primary customer care associate to a significant other at home: Yes Do you presently have visiting nurse or other home services: No 75 years or older and lives alone: No Alcohol intake: current Alcohol intake frequency: a few times a month Patient Tobacco Use Status: Never used Tobacco e-Cigarette/Vaping Use: Currently Using Second Hand Smoke Exposure: No service: No Current occupational status: employed 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 Cognitive needs: No Hearing needs: No Vision needs: Yes (wear glasses) Questionnaire Thrive Questionnaire Date Thrive assessed: 01/24/25 I am a: Patient What is your living situation today?: I have a steady place to live Within the past 12 months, did the food you bought not last and you didn't have the money to get more?: Never true Within the past 12 months, did you worry whether your food would run out before you got money to buy more?: Never true Do you have trouble paying for medicines?: No Do you have trouble getting transportation to medical appointments?: No Do you have trouble paying your heating and electricity bill?: No Do you have trouble taking care of your child, family member or friend?: No Do you have trouble with day-to-day activities such as bathing, preparing meals, shopping, managing finances, etc.?: No Are you currently unemployed and looking for a job?: No Are you interested in more education?: No Please select the resources that you would like help with: None Currently or been in a relationship where the following occur: No concerns reported THRIVE Score: 0 MARCUS-7 AMB Questionnaire MARCUS-7 Date MARCUS - 7 assessed: 01/24/25 Source: Developed by Drs. Gigi Tompkins, Chinyere Fam, Rob Watson and colleagues, with an educational leanne from [employer] Physical exam (Primary Care) Vital Signs: Last Vital Signs Temp 98.4 F 10/14/25 10:23 Pulse 78 10/14/25 10:23 Resp 12 10/14/25 10:23 BP 110/72 10/14/25 10:23 Pulse Ox 99 10/14/25 10:23 Oxygen Delivery Method Room Air 10/14/25 10:23 BMI result Body Mass Index 27.1 Tobacco/Smoking Status: Tobacco use Status Tobacco use date assessed 10/14/25 10/14/25 10:32 Patient Tobacco Use Status Never used Tobacco 10/14/25 10:32 e-Cigarette/Vaping Use Currently Using 10/14/25 10:32 Thrive Assessment: Date of Thrive Assessment Date Thrive assessed 01/24/25 10/14/25 10:32 Currently or been in a relationship where the following occur: No concerns reported Coding Level of Care Code Est Pt Prev Care 40-64y(00245) Diagnoses Routine physical examination Z00.00 Mild anemia D64.9 Thyroid nodule E04.1 Assessment & Plan Assessment & Plan (1) Routine physical examination: Code(s): Z00.00 - Encounter for general adult medical examination without abnormal findings Category: Medical (2) Mild anemia: Code(s): D64.9 - Anemia, unspecified Category: Medical (3) Thyroid nodule: Code(s): E04.1 - Nontoxic single thyroid nodule Category: Medical Plan Patient is seen today for a routine physical. As part of this visit we reviewed the following issues, which are considered and essential part of preventative health in this age group: - Breast Cancer screening - Annual [place] Bleacher exam - Screening for colon cancer - age [age] years old unless indicated sooner - Blood pressure screening - Cholesterol screening - Osteoporosis prevention including calcium/vitamin D intake, weight bearing exercise & smoking cessation - Nutritional and exercise counseling - Counseling of injury prevention including fire prevention, smoke alarms and seat belt usage - Screening for depression - Education about skin cancer - Recommendations about immunizations - Recommendation of an eye exam - Screening for substance abuse Orders: Orders Ferritin Today D64.9 - Anemia, unspecified Vitamin B12 Today D64.9 - Anemia, unspecified Complete Blood Count Auto Diff Today D64.9 - Anemia, unspecified IRON PROFILE Today D64.9 - Anemia, unspecified Basic Metabolic Panel Today Z00.00 - Encounter for general adult medical examination without abnormal findings TSH reflex Free T4 Today E04.1 - Nontoxic single thyroid nodule
[2025-10-14 10:23] VITALS: BP 110/72; PULSE 78; RESP 12; TEMP 36.9; O2SAT 99; BMI 27.1
== END 2025-10-14 11:10 | disposition home or self-care (01) ==
LOC: HO.HMCFM 10:10
PROVIDERS: PCP Physician Assistant Medical; Visit Provider Physician Assistant Medical
DX: Z00.00 Encounter for general adult medical examination without abnormal findings (principal); D64.9 Anemia, unspecified; E04.1 Nontoxic single thyroid nodule

== ENCOUNTER 2025-10-14 10:09 | Outpatient (REF) | payer BC, SELFPAY ==
[2025-10-14 14:04] LABS: MANUAL DIFF FLAG NO
[2025-10-14 14:18] LABS: Hematocrit 34.6 % (37.0-47.0); Hemoglobin 11.9 g/dl (12.0-16.0); Imm Gran Abs Auto 0.01 X10*3/uL (0.00-0.03); Imm Gran Pct Auto 0.2 % (0.0-0.4); Lymphocytes Absolute Auto 2.0 X10*3/uL (1.2-4.9); Mean Corpuscular HGB Conc 34.4 g/dl (31.0-35.0); Mean Corpuscular Hemoglobin 31.1 pg (27.0-33.0); Mean Corpuscular Volume 90.3 fL (80.0-98.0); NRBC Abs Auto 0.000 X10*3/uL (0.0-0.012); NRBC Pct Auto 0.0 /100WBC (0.0-0.2); Platelet Count 161 X10*3/uL (160-400); Red Blood Count 3.83 X10*6/uL (4.20-5.50); White Blood Count 5.8 X10*3/uL (4.8-10.8)
[2025-10-14 14:51] LABS: Anion Gap 8 (12-20); Blood Urea Nitrogen 10 mg/dL (9-16); Calcium 8.9 mg/dL (8.4-10.2); Carbon Dioxide 26 mmol/L (22-29); Chloride 108 mmol/L (96-108); Estimated Glomerular Filt Rate > 60; Iron 107 mcg/dL (30-160); Percent Iron Saturation 47 % (15-50); Potassium 4.0 mmol/L (3.3-5.1); Sodium 138 mmol/L (135-145); Total Iron Binding Capacity 230 mcg/dL (228-428); Unsaturated Iron Binding 123 ug/dL
[2025-10-14 14:54] LABS: Ferritin 56 ng/mL (10-250)
[2025-10-14 14:57] LABS: Vitamin B12 553 pg/mL (200-900)
== END 2025-10-14 10:10 | disposition home or self-care (01) ==
LOC: HO.WFDLDS 10:09
PROVIDERS: PCP Physician Assistant Medical; Visit Provider Physician Assistant Medical
DX: Z00.00 Encounter for general adult medical examination without abnormal findings (principal); D64.9 Anemia, unspecified; E04.1 Nontoxic single thyroid nodule; Z79.899 Other long term (current) drug therapy
CPT/HCPCS: 36415; 80048; 82607; 82728; 83540; 84443; 85025